=== PATIENT | male | born 1950 | race Caucasian/White ===

== ENCOUNTER 2017-03-02 11:32 | Inpatient (IN) ==
--- NOTE | 2017-03-02 12:08 | Emergency Department Note ---
Disposition Clinical Impression: Adenocarcinoma of lung, stage 3, Tachycardia, Epigastric abdominal pain, Leukopenia, COPD (chronic obstructive pulmonary disease), Dysphagia, Malnutrition, Leukopenia, Pneumonia, Dyspnea, Prostatic hypertrophy, Thrombocytopenia Disposition: Admitted As Inpatient Referrals: Bushra Carrillo MD [Primary Care Provider] - Forms: Work/School Release, ED Satisfaction Letter General Adult HPI - General Chief complaint: ED General Medical Stated complaint: Pain/Loss of Appetite Cancer Patient Source: patient, family Limitations: no limitations - History of Present Illness HPI Narrative: 66-year-old male comes into the emergency department there is concern for dehydration. Patient has a history of lung cancer has been undergoing treatment. He describes pain when swallowing and discomfort in his mid epigastrium which she describes as a burning pain. He has had no abdominal pain. He patient has a history of coronary artery disease but denies any upper chest pain there is no history of radiating pain to the neck or arms. There is no history of bloody or black material in the stool. The patient states he supposed to be anticoagulated but has been unable to take his medication. The patient has had trouble swallowing and has not been eating or drinking as much. He was in contact with the cancer center staff who recommended the patient be admitted to the hospital. The patient was sent to the ED for evaluation. There is no history of trauma or acute back pain. No history of cough or coughing up blood no leg swelling or pain. He patient has been somewhat short of breath. He does not usually require oxygen but has oxygen at home available. There is no history of previous DVT or PE. No syncope. No trouble moving the arms or legs independently no unilateral arm or leg weakness or numbness. There is no history of confusion or dysarthria. The patient's concerns are for burning in the midepigastric area, pain associated with swallowing, and dehydration. There are reports the patient has had a high heart rate. Pain Scale: 6 - Related Data Home Medications Medication Instructions Recorded Confirmed Atorvastatin [Lipitor] 80 mg PO HS 11/23/16 03/02/17 Fluticasone Propionate Nasal 2 spray NS DAILY 11/23/16 03/02/17 [Flonase] Albuterol Sulfate [Proair Hfa] 2 puff IH Q4H PRN 11/29/16 03/02/17 Budesonide/Formoterol 160/4.5 2 puff IH BIDR 11/29/16 03/02/17 [Symbicort 160/4.5] Ipratropium [place] 2 spray NS HS 11/29/16 03/02/17 Multivitamin [One Daily Essential] 1 tab PO DAILY 11/29/16 03/02/17 Previous Rx's Medication Instructions Recorded Aspirin Enteric Coated [Aspirin EC] 81 mg PO DAILY #30 tablet. 10/09/15 Carvedilol [Coreg] 3.125 mg PO BIDWM #60 tablet 10/09/15 Clopidogrel [Plavix] 75 mg PO DAILY #30 tablet 10/09/15 Lisinopril [Zestril] 5 mg PO DAILY #30 tablet 10/09/15 Dexamethasone [Decadron] 4 mg PO BID #10 tab 12/20/16 Ondansetron ODT [Zofran ODT] 4 mg SL Q8HR PRN #90 tab.rapdis 12/20/16 Prochlorperazine Maleate 10 mg PO Q8HR PRN #90 tablet 12/20/16 [Compazine] Omeprazole [PriLOSEC] 40 mg PO DAILY #30 cap 01/27/17 GuaiFENesin/Codeine [Robitussin 10 ml PO Q8HR PRN #600 liquid 02/03/17 w/Codeine] Mag Hydrox/Al Hydrox/Simeth 5 - 10 ml PO Q4H PRN #520 oral.susp 02/24/17 [Maalox] Magic Mouthwash [Magic Mouthwash 10 ml PO QID PRN #240 ml 02/28/17 BLM] Nystatin [Nystatin Suspension] 5 - 10 ml PO Q4H #1000 ml 02/28/17 OxyCODONE/APAP 5/325 [Percocet 1 each PO Q4HR PRN #80 tablet 02/28/17 5/325 MG] Sucralfate [Carafate] 1 gm PO QIDAC #120 tablet 02/28/17 Allergies Allergy/AdvReac Type Severity Reaction Status Date / Time No Known Allergies Allergy Verified 03/02/17 11:59 All systems ED: reviewed and negative except as stated. Past Medical History - Past Medical History Medical history: Reports: cancer, COPD, hyperlipidemia, myocardial infarction Surgical history: Reports: other Psychiatric history: Reports: no psych history - Social History Smoking Status: Current every day smoker Smokeless Tobacco Status: No Alcohol use: Reports: none Drug use: Reports: none Physical Exam - General Limitations: no limitations General appearance: alert, in no apparent distress - Head Head exam: atraumatic, normocephalic, normal inspection - Eye Eye exam: Present: normal appearance, PERRL, EOMI. Absent: scleral icterus, conjunctival injection, miosis, mydriasis - ENT ENT exam: normal exam, normal oropharynx, mucous membranes moist - Neck Neck exam: Present: normal inspection, full ROM, trachea midline. Absent: tenderness - Chest Chest inspection: Present: symmetric chest wall rise. Absent: tenderness - Respiratory Respiratory exam: Present: normal lung sounds bilaterally. Absent: respiratory distress, wheezes, accessory muscle use, prolonged expiratory phase - Cardiovascular Cardiovascular exam: Present: normal rhythm, tachycardia - Abdominal Exam Abdominal exam: Present: soft, Non-Tender, normal bowel sounds. Absent: tenderness, distention, guarding, rebound, rigidity, pulsatile mass - Extremities Exam Extremities exam: Present: normal inspection, full ROM, normal capillary refill. Absent: tenderness, pedal edema, joint swelling, calf tenderness - Expanded Lower Extremity Exam Lower leg exam: Absent: Homans' sign Neurovascular/Tendon exam: Present: normal capillary refill. Absent: motor deficit, sensory deficit, tendon deficit, extremity cold to touch, pallor - Back Exam Back exam: Present: normal inspection, full ROM. Absent: tenderness, CVA tenderness (R), CVA tenderness (L), vertebral tenderness - Neurological Exam Neurological exam: Present: alert, oriented X3, CN II-XII intact. Absent: motor sensory deficit - Psychiatric Psychiatric exam: Present: normal affect, normal mood - Skin Skin exam: Present: warm, dry, intact, normal color. Absent: rash, cyanosis, diaphoresis, erythema, pallor, mottled Course Vital Signs Temperature 99.3 F 03/02/17 11:34 Pulse Rate 137 03/02/17 11:34 Respiratory Rate 18 03/02/17 11:34 Blood Pressure 126/77 03/02/17 11:34 O2 Sat by Pulse Oximetry 94 03/02/17 11:34 Temperature 99.3 F 03/02/17 11:34 Pulse Rate 115 03/02/17 14:14 Respiratory Rate 12 03/02/17 14:14 Blood Pressure 129/76 03/02/17 14:14 O2 Sat by Pulse Oximetry 92 03/02/17 14:14 Oxygen Delivery Oxygen Delivery Nasal Cannula Medical Decision Making - MDM Narrative Medical decision making narrative: Patient reportedly has a history of esophagitis per his oncologist, they feel he is malnourished and may require PEG tube, they have suggested admission. The patient's CT scans are suggestive of pneumonitis, he does have an elevated CRP and complaints of dyspnea, he does not usually wear oxygen and is now Significantly short of breath. The patient has remained tachycardic in the ED. IV fluids were given. Levaquin given blood cultures were sent. Based on the patient's comorbidities including malignancy, persistent tachycardia elevated CRP, CT studies suggestive of pulmonary infiltrate, and dyspnea with comorbid COPD, I thought it would be appropriate to admit the patient to the hospital. The patient is currently stable. There is no evidence of pulmonary venous thrombus. I discussed the case with the hospitalist who has accepted the patient to their care. - Lab Data Lab results reviewed: Yes I reviewed the patient's lab results. Result diagrams: 03/02/17 12:13 03/02/17 12:13 Lab Results 03/02/17 03/02/17 03/02/17 Range/Units 12:13 12:13 12:13 WBC 2.6 L (4.3-11.1) K/mcL RBC 4.84 (4.19-5.50) M/mcL Hgb 13.1 (12.9-16.9) g/dL Hct 39.7 (37.5-50.1) % MCV 82.0 L (83.0-100.0) fL MCH 27.1 L (28.0-33.3) pg MCHC 33.0 (31.6-35.5) g/dL RDW 15.2 H (11.5-14.5) % Plt Count 107 L (140-400) K/mcL MPV 9.6 (9.4-12.4) fL Immature Gran % 0.4 (0-4) % Seg Neutrophils % 75.1 % Lymphocytes % 8.0 % Monocytes % 16.1 % Eosinophils % 0.0 % Basophils % 0.4 % Neutrophils # 2.0 (1.6-8.9) K/mcL Lymphocytes # 0.2 L (0.6-4.6) K/mcL Monocytes # 0.4 (0.0-1.3) K/mcL Eosinophils # 0.0 (0.0-0.6) K/mcL Basophils # 0.0 (0.0-0.2) K/mcL PT (9.4-12.1) Seconds INR APTT (26.0-36.0) Seconds Sodium 140 (136-145) mEq/L Potassium 3.7 (3.5-4.5) mEq/L Chloride 103 (98-109) mEq/L Carbon Dioxide 23 (19-29) mEq/L BUN 18 (8-26) mg/dL Creatinine 0.87 (0.72-1.25) mg/dL Est GFR ( Amer) > 60 (> 60) Est GFR (Non-Af Amer) > 60 (> 60) BUN/Creatinine Ratio 21 (6-26) Glucose 97 (70-99) mg/dL Calculated Osmolality 292 (280-300) Lactic Acid (0.5-2.2) mmol/L Calcium 9.2 (8.6-10.8) mg/dL Magnesium 1.9 (1.6-2.6) mg/dL Total Bilirubin 0.5 (0.2-1.2) mg/dL Direct Bilirubin 0.2 (0.0-0.5) mg/dL Indirect Bilirubin 0.3 (0.0-1.2) mg/dL AST 18 (5-34) Units/L ALT 34 (0-55) Units/L Alkaline Phosphatase 78 (38-126) Units/L Troponin I 0.01 (0-0.03) ng/mL C-Reactive Protein 85 H (Less than 5) mg/L Serum Total Protein 7.2 (6.0-8.3) g/dL Albumin 3.3 L (3.5-5.0) g/dL Globulin 3.9 H (2.4-3.5) g/dL Albumin/Globulin Ratio 0.8 L (1.1-2.2) Lipase 5 L (8-78) Units/L 03/02/17 03/02/17 Range/Units 12:13 12:15 WBC (4.3-11.1) K/mcL RBC (4.19-5.50) M/mcL Hgb (12.9-16.9) g/dL Hct (37.5-50.1) % MCV (83.0-100.0) fL MCH (28.0-33.3) pg MCHC (31.6-35.5) g/dL RDW (11.5-14.5) % Plt Count (140-400) K/mcL MPV (9.4-12.4) fL Immature Gran % (0-4) % Seg Neutrophils % % Lymphocytes % % Monocytes % % Eosinophils % % Basophils % % Neutrophils # (1.6-8.9) K/mcL Lymphocytes # (0.6-4.6) K/mcL Monocytes # (0.0-1.3) K/mcL Eosinophils # (0.0-0.6) K/mcL Basophils # (0.0-0.2) K/mcL PT 13.0 H (9.4-12.1) Seconds INR 1.2 APTT 25.1 L (26.0-36.0) Seconds Sodium (136-145) mEq/L Potassium (3.5-4.5) mEq/L Chloride (98-109) mEq/L Carbon Dioxide (19-29) mEq/L BUN (8-26) mg/dL Creatinine (0.72-1.25) mg/dL Est GFR ( Amer) (> 60) Est GFR (Non-Af Amer) (> 60) BUN/Creatinine Ratio (6-26) Glucose (70-99) mg/dL Calculated Osmolality (280-300) Lactic Acid 1.4 (0.5-2.2) mmol/L Calcium (8.6-10.8) mg/dL Magnesium (1.6-2.6) mg/dL Total Bilirubin (0.2-1.2) mg/dL Direct Bilirubin (0.0-0.5) mg/dL Indirect Bilirubin (0.0-1.2) mg/dL AST (5-34) Units/L ALT (0-55) Units/L Alkaline Phosphatase (38-126) Units/L Troponin I (0-0.03) ng/mL C-Reactive Protein (Less than 5) mg/L Serum Total Protein (6.0-8.3) g/dL Albumin (3.5-5.0) g/dL Globulin (2.4-3.5) g/dL Albumin/Globulin Ratio (1.1-2.2) Lipase (8-78) Units/L - Radiology Data Radiology results reviewed: Yes I reviewed the patient's radiology results.
[2017-03-02] MEDS ORDERED: 0.9 % Sodium Chloride 1,000 ML IVC ONE ×3 (12:10→15:10)
[2017-03-02] MEDS ORDERED: Famotidine 20 MG/2 ML VIAL IVP ONE ×2 (12:20→14:57)
[2017-03-02] MEDS ORDERED: *HR* HYDROmorphone (PF) 1 MG/ML SYRINGE IVP ONE (12:21)
[2017-03-02] MEDS ORDERED: Ondansetron 4 MG/2 ML VIAL IVP ONE (12:21)
[2017-03-02 12:25] LABS: Hematocrit 39.7 % (37.5-50.1); Hemoglobin 13.1 g/dL (12.9-16.9); Immature Granulocytes % 0.4 % (0-4); Mean Corpuscular Hemoglobin 27.1 pg (28.0-33.3); Mean Platelet Volume 9.6 fL (9.4-12.4); Monocytes % 16.1 %; Platelet Count 107 K/mcL (140-400); Red Blood Count 4.84 M/mcL (4.19-5.50); Red Cell Distribution Width 15.2 % (11.5-14.5); Segmented Neutrophils % 75.1 %
[2017-03-02 12:26] LABS: Basophils % 0.4 %; Lymphocytes # 0.2 K/mcL (0.6-4.6); Monocytes # 0.4 K/mcL (0.0-1.3)
[2017-03-02 12:41] LABS: Alanine Aminotransferase 34 Units/L (0-55); Albumin 3.3 g/dL (3.5-5.0); Albumin/Globulin Ratio 0.8 (1.1-2.2); Alkaline Phosphatase 78 Units/L (38-126); Aspartate Amino Transferase 18 Units/L (5-34); BUN/Creatinine Ratio 21 (6-26); Bilirubin,Direct 0.2 mg/dL (0.0-0.5); Bilirubin,Indirect 0.3 mg/dL (0.0-1.2); Bilirubin,Total 0.5 mg/dL (0.2-1.2); Blood Urea Nitrogen 18 mg/dL (8-26); Calcium 9.2 mg/dL (8.6-10.8); Carbon Dioxide 23 mEq/L (19-29); Chloride 103 mEq/L (98-109); Globulin 3.9 g/dL (2.4-3.5); Glucose 97 mg/dL (70-99); Magnesium 1.9 mg/dL (1.6-2.6); Osmolality,Calculated 292 (280-300); Potassium 3.7 mEq/L (3.5-4.5); Sodium 140 mEq/L (136-145); Total Protein 7.2 g/dL (6.0-8.3); eGFR For African Americans > 60 (> 60); eGFR For Non-African Americans > 60 (> 60)
[2017-03-02 13:02] LABS: C-Reactive Protein 85 mg/L (Less than 5)
[2017-03-02 13:11] LABS: INR 1.2
[2017-03-02 13:13] LABS: Activated Partial Thrombo Time 25.1 Seconds (26.0-36.0)
[2017-03-02 13:15] LABS: Lipase 5 Units/L (8-78)
[2017-03-02] MEDS ORDERED: Levofloxacin 750 MG/150 ML 750 MG/150 ML BAG IVPB ONE (14:29)
[2017-03-02] MEDS ORDERED: methylPREDNISolone 125 MG/2 ML VIAL IVP ONE (14:56)
[2017-03-02 15:46] LABS: Bilirubin,Urine Small (Negative); Blood,Urine Trace (Negative); Clarity,Urine Clear (Clear); Color,Urine Yellow (Yellow); Glucose,Urine (UA) Normal (Normal); Ketones,Urine 15 mg/dL (Negative); Leukocyte Esterase,Urine Negative (Negative); Nitrite,Urine Negative (Negative); Protein,Urine Negative (Neg-Trace); Specific Gravity,Urine > 1.030 (1.010-1.025); Urobilinogen,Urine Normal (Normal)
[2017-03-02] MEDS ORDERED: Acetaminophen 325 MG TABLET PO PRN (15:53)
[2017-03-02] MEDS ORDERED: Naloxone 0.4 MG/ML INJ IVP PRN (15:53)
[2017-03-02] MEDS ORDERED: *HR* OxyCODONE Immed Rel 5 MG TABLET PO PRN (15:53)
[2017-03-02 16:00] LABS: Hyaline Casts,Urine Few per lpf (None-Few); Mucus,Urine Moderate (Few)
[2017-03-02] MEDS ORDERED: Fluconazole 400 MG/200 ML 400 MG/200 ML BAG IVPB SCH (16:00)
[2017-03-02 16:01] LABS: Bacteria,Urine Few per hpf (None-Few); RBC,Urine 0-3 per hpf (0-3); WBC,Urine 0-3 per hpf (0-3)
--- NOTE | 2017-03-02 16:08 | Internal Med History&Physical ---
Date of Encounter: 03/02/17 Time of Encounter: 15:30 Assessment and Plan (1) Sepsis Current visit: Yes Status: Suspected Patient presenting with symptoms of sepsis possibly due to underlying pneumonia. Will follow blood cultures. Monitor vital signs closely. IV hydration. IV antibiotics. High risk for complications. Qualifiers: Sepsis type: Pneumococcus Qualified Code(s): A40.3 - Sepsis due to Streptococcus pneumoniae (2) Odynophagia Current visit: Yes Status: Acute Likely due to oropharyngeal candidiasis. May also have esophageal candidiasis. Will treat with oral clotrimazole and also intravenous fluconazole. (3) Candidiasis of mouth and esophagus Current visit: Yes Status: Acute Treat with intravenous fluconazole and oral clotrimazole swish and swallow. (4) Pneumonia Current visit: Yes Status: Suspected CT scan findings suggestive of pneumonia in the right lower lobe. We will treat with IV antibiotics. Follow blood cultures. Qualifiers: Pneumonia type: due to Pneumococcus Laterality: right Lung location: lower lobe of lung Qualified Code(s): J13 - Pneumonia due to Streptococcus pneumoniae (5) Adenocarcinoma of lung, stage 3 Current visit: Yes Status: Chronic Follow-up with oncology as outpatient for further management. Pain control. O2 supplementation as needed. Qualifiers: Laterality: right Qualified Code(s): C34.91 - Malignant neoplasm of unspecified part of right bronchus or lung (6) COPD (chronic obstructive pulmonary disease) Current visit: Yes Status: Chronic Not in acute exacerbation. Continue bronchodilator nebs as needed. Qualifiers: COPD type: unspecified COPD Qualified Code(s): J44.9 - Chronic obstructive pulmonary disease, unspecified Internal Medicine - H&P: HPI Chief complaint: Generalized weakness, odynophagia Admitted From: Emergency Dept Plans for Post Hospital Care: Home History of present illness: Mr. Carbone is a 66 year old male patient with stage III adenocarcinoma of the lung, COPD, coronary artery disease resented to the ER with complaints of anorexia and odynophagia along with generalized weakness. Patient has been receiving chemotherapy and radiation therapy since November and has finally completed a course on Monday of last week. Since then he has been feeling sick with worsening pain in his stomach especially with eating. He has been taking oxycodone that this makes him feel dizzy and does not help with his pain. He denies any fever chills or night sweats. He has chronic cough that has been going on since he began treatment for his cancer. He has also has episodes of mild hemoptysis. No hematemesis. No melena. He has also been dealing with oral thrush. He was started on treatment for this but has not had any improvement. Past Med Surg Social Fam HX - Past Medical History Attestation: Yes The following information was validated with the patient. Source: patient, old records reviewed, obtained from family Medical history: cancer, COPD, hyperlipidemia, myocardial infarction Psychiatric history: no psych history - Past Surgical History Surgical History: other - Social History Smoking Status: Current every day smoker Smokeless Tobacco Status: No Alcohol use: none Drug use: none - Family History Mother Hx Family Cardiac Disorders: Yes (CHF) Internal Medicine - H&P: Meds Aspirin Enteric Coated [Aspirin EC] 81 mg PO DAILY #30 tablet. 10/09/15 [Rx] Carvedilol [Coreg] 3.125 mg PO BIDWM #60 tablet 10/09/15 [Rx] Clopidogrel [Plavix] 75 mg PO DAILY #30 tablet 10/09/15 [Rx] Lisinopril [Zestril] 5 mg PO DAILY #30 tablet 10/09/15 [Rx] Atorvastatin [Lipitor] 80 mg PO HS 11/23/16 [History] Fluticasone Propionate Nasal [Flonase] 2 spray NS DAILY 11/23/16 [History] Albuterol Sulfate [Proair Hfa] 2 puff IH Q4H PRN 11/29/16 [History] Budesonide/Formoterol 160/4.5 [Symbicort 160/4.5] 2 puff IH BIDR 11/29/16 [ History] Ipratropium [place] 2 spray NS HS 11/29/16 [History] Multivitamin [One Daily Essential] 1 tab PO DAILY 11/29/16 [History] Dexamethasone [Decadron] 4 mg PO BID #10 tab 12/20/16 [Rx] Ondansetron ODT [Zofran ODT] 4 mg SL Q8HR PRN #90 tab.rapdis 12/20/16 [Rx] Prochlorperazine Maleate [Compazine] 10 mg PO Q8HR PRN #90 tablet 12/20/16 [Rx] Omeprazole [PriLOSEC] 40 mg PO DAILY #30 cap 01/27/17 [Rx] GuaiFENesin/Codeine [Robitussin w/Codeine] 10 ml PO Q8HR PRN #600 liquid [Rx] Mag Hydrox/Al Hydrox/Simeth [Maalox] 5 - 10 ml PO Q4H PRN #520 oral.susp [Rx] Magic Mouthwash [Magic Mouthwash BLM] 10 ml PO QID PRN #240 ml 02/28/17 [Rx] Nystatin [Nystatin Suspension] 5 - 10 ml PO Q4H #1000 ml 02/28/17 [Rx] OxyCODONE/APAP 5/325 [Percocet 5/325 MG] 1 each PO Q4HR PRN #80 tablet 02/28/17 [Rx] Sucralfate [Carafate] 1 gm PO QIDAC #120 tablet 02/28/17 [Rx] Allergies No Known Allergies Allergy (Verified 03/02/17 11:59) All Systems PM: A 10-system review of systems was performed and is negative for pertinent findings except as documented above in the HPI. - Constitutional Constitutional: malaise, weakness, no chills, no fever(s), no night sweats - EENT Eyes: no change in vision, no discharge, no pain, no photophobia Ears: no ear discharge, no ear pain, no tinnitus Nose, mouth and throat: no dysphagia, no nasal discharge, no neck pain, no sore throat - Cardiovascular Cardiovascular ROS IM: no chest pain, no diaphoresis, no dyspnea, no lightheadedness, no palpitations, no syncope - Respiratory Respiratory: no cough, no dyspnea, no wheezing, no excessive phlegm production - Gastrointestinal Gastrointestinal: dysphagia, odynophagia, no abdominal pain, no diarrhea, no hematemesis, no hematochezia, no melena, no nausea, no vomiting - Musculoskeletal Musculoskeletal ROS IM: no numbness, no tingling - Integumentary Integumentary IM: no rash, no unusual bruising - Neurological Neurological ROS: no confusion, no convulsions, no focal weakness, no numbness, no tingling, no tremor(s) - Hematologic/Lymphatic Hematologic/Lymphatic: no easy bruising - Constitutional Vitals: Temp Pulse Resp BP Pulse Ox 99.3 F 106 12 138/97 97 03/02/17 11:34 03/02/17 15:29 03/02/17 15:29 03/02/17 15:29 03/02/17 15:29 General appearance: Present: cooperative, mild distress, A&O X 3, answers questions appropriately - Eye Eye exam: Present: EOMI, PERRL - ENT Additional comments: Oral candidiasis noted visibly on the tongue - Neck Neck exam general surgery: Present: supple, trachea midline. Absent: lymphadenopathy - Respiratory Respiratory exam: Present: CTAB. Absent: accessory muscle use, rales, rhonchi, wheezes - Cardiovascular Cardiovascular exam: Present: RRR, +S1, +S2. Absent: diastolic murmur, gallop, rubs, systolic murmur - GI/Abdominal GI/Abdominal exam: Present: normal bowel sounds, soft, no peritoneal signs. Absent: distended, tenderness - Extremities Exam Extremities exam: Present: warm, radial pulses palpable and symetrical. Absent : calf tenderness, cyanotic, pedal edema - Neurological Exam Neurological exam: Present: alert, oriented X3, no focal deficits. Absent: facial droop, speech deficit - Skin Skin exam: Present: dry, intact Internal Med - H&P Results - Labs CBC & Chem 7: 03/02/17 12:13 03/02/17 12:13 - Impressions Impressions Chest X-Ray 03/02/17 12:08 IMPRESSION: No acute cardiopulmonary process. D/ / 03/02/2017 13:43:21 Justin Light MD / [facility] Interpreting Provider: Justin Light MD Abdomen/Pelvis CT 03/02/17 13:23 IMPRESSION: 1. No definite acute process in the abdomen or pelvis. 2. Scattered fluid in distal small bowel, which is nonspecific but can be seen with gastroenteritis. 3. Moderately enlarged prostate. 4. Aneurysmal dilation of the infrarenal aorta to 3.0 cm. Follow-up per guidelines below. 5. Patchy opacities posteriorly in the right lung base, suspicious for an infectious process. Please refer to separate report from CTA of the chest. RECOMMENDATIONS: Managing Abdominal Aortic Aneurysms 2.6-2.9 cm: 5 year follow up. 3.0-3.4 cm: 3 year follow up 3.5-3.9 cm: 1 year follow up. 4.0-4.4 cm: 1 year follow up. Recommend vascular consultation. 4.5-5.4 cm: 6 month follow up. Recommend vascular consultation. Greater than or equal to 5.5 cm: Referral to vascular surgeon. Reference: Stewart et al. The care of patients with an abdominal aortic aneurysm: The Society of Vascular Surgery practice guidelines. Journal of Vascular Surgery. Vol 50, Number 85. Zoë et al. Managing Incidental Findings on Abdominal and Pelvic CT and MRI, Part 2: White Paper of the ACR Incidental Findings Committee II on Vascular Findings. J Am Chelle Radiol 2013;10:789-794 D/ / 03/02/2017 14:36:33 Guillermo Roger MD / jaden Interpreting Provider: Guillermo Roger MD Chest CTA 03/02/17 13:23 IMPRESSION: No evidence for pulmonary emboli. The patient's right hilar mass appears slightly smaller than on the prior exam. The right apical mass is unchanged. The mediastinal adenopathy is unchanged. There is some diffuse septal thickening and peribronchial thickening seen within the right lower lobe new from prior PET scan may represent some atelectatic changes or early pneumonia, however, cannot exclude the possibly of lymphangitic spread of tumor. D/ / 03/02/2017 14:37:23 Felipe Bermudez MD / Vaishali Saunders Interpreting Provider: Felipe Bermudez MD - Attending Attestation This document has been at least partially created by [employer] recognition technology by Dr. Poon. Errors in grammar, wording or other phrases may exist. If errors are found after the documentation is signed, they will be addressed individually in the addendum section of this document when appropriate.
[2017-03-02] MEDS: Sucralfate 1 GM TABLET PO SCH ×2 (17:30→21:54)
[2017-03-02] MEDS: Pantoprazole 40 MG VIAL IVP SCH (17:32)
[2017-03-02] MEDS: 0.9 % Sodium Chloride 1,000 ML IVC SCH (17:34)
[2017-03-02] MEDS: *HR* Morphine 2 MG/ML SYRINGE IVP PRN ×2 (17:49→21:55)
[2017-03-02] MEDS: Budesonide/Formoterol 160/4.5 MDI IH SCH (20:16)
[2017-03-03 04:25] LABS: Basophils % 0.5 %
[2017-03-03 04:27] LABS: Hemoglobin 10.4 g/dL (12.9-16.9); Immature Granulocytes % 0.5 % (0-4); Lymphocytes # 0.2 K/mcL (0.6-4.6); Lymphocytes % 9.5 %; Mean Corpuscular HGB Conc 32.5 g/dL (31.6-35.5); Mean Corpuscular Hemoglobin 27.3 pg (28.0-33.3); Mean Platelet Volume 10.4 fL (9.4-12.4); Monocytes # 0.2 K/mcL (0.0-1.3); Monocytes % 8.5 %; Neutrophils # 1.5 K/mcL (1.6-8.9); Red Blood Count 3.81 M/mcL (4.19-5.50); Red Cell Distribution Width 15.1 % (11.5-14.5)
[2017-03-03 04:46] LABS: BUN/Creatinine Ratio 20 (6-26); Blood Urea Nitrogen 15 mg/dL (8-26); Calcium 8.3 mg/dL (8.6-10.8); Carbon Dioxide 22 mEq/L (19-29); Chloride 108 mEq/L (98-109); Glucose 120 mg/dL (70-99); Osmolality,Calculated 292 (280-300); Potassium 4.6 mEq/L (3.5-4.5); Sodium 140 mEq/L (136-145); eGFR For African Americans > 60 (> 60); eGFR For Non-African Americans > 60 (> 60)
[2017-03-03 05:17] LABS: Platelet Count 88 K/mcL (140-400)
[2017-03-03 05:19] LABS: Platelet Estimate Normal (Normal)
[2017-03-03] MEDS: 0.9 % Sodium Chloride 1,000 ML IVC SCH ×2 (05:44→17:57)
[2017-03-03] MEDS ORDERED: *HR* Heparin 5,000 UNIT/ML VIAL SQ SCH (06:00)
[2017-03-03] MEDS: Sucralfate 1 GM TABLET PO SCH ×2 (07:27→10:55)
[2017-03-03] MEDS: Budesonide/Formoterol 160/4.5 MDI IH SCH ×2 (08:13→23:04)
[2017-03-03] MEDS: Pantoprazole 40 MG VIAL IVP SCH (08:56)
[2017-03-03] MEDS: Levofloxacin 750 MG/150 ML 750 MG/150 ML BAG IVPB SCH (08:57)
[2017-03-03] MEDS: Fluticasone Propionate Nasal 50 MCG/SPRAY BOTTLE NS SCH (09:00)
[2017-03-03] MEDS ORDERED: Fluconazole 100 MG TABLET PO SCH (09:00)
[2017-03-03] MEDS: Aspirin Enteric Coated 81 MG Tablet PO SCH (09:02)
[2017-03-03] MEDS ORDERED: Stomatitis Mixture 5 ML UDC PO PRN (10:14)
[2017-03-03] MEDS ORDERED: Fluconazole 200 MG/100 ML 200 MG/100 ML BAG IVPB SCH (10:30)
--- NOTE | 2017-03-03 11:39 | Anesthesia Evaluation PreOp ---
Date of Encounter: 03/03/17 Time of Encounter: 11:33 - Past History Planned Operation: EGD for severe dysphagia Cardiac History: [place] (2015 angioplasty, METS >4 without comp (mild SOB)), HTN, Hyperlipidemia Pulmonary History: Other (LUNG CA, with recent chemo and radiation) INTELLECTUAL PROPERTY COUNSEL History: Denies Any Significant HX Other Medical History: Denies Any Significant HX Anesthesia History: No Prior Anesthetic Complications, Past Anesthesia Alcohol Use: none Drug use: none Medications and Allergies Aspirin Enteric Coated [Aspirin EC] 81 mg PO DAILY #30 tablet.dr 10/09/15 [Rx] Carvedilol [Coreg] 3.125 mg PO BIDWM #60 tablet 10/09/15 [Rx] Clopidogrel [Plavix] 75 mg PO DAILY #30 tablet 10/09/15 [Rx] Lisinopril [Zestril] 5 mg PO DAILY #30 tablet 10/09/15 [Rx] Atorvastatin [Lipitor] 80 mg PO HS 11/23/16 [History] Fluticasone Propionate Nasal [Flonase] 2 spray NS DAILY 11/23/16 [History] Albuterol Sulfate [Proair Hfa] 2 puff IH Q4H PRN 11/29/16 [History] Budesonide/Formoterol 160/4.5 [Symbicort 160/4.5] 2 puff IH BIDR 11/29/16 [ History] Ipratropium [place] 2 spray NS HS 11/29/16 [History] Multivitamin [One Daily Essential] 1 tab PO DAILY 11/29/16 [History] Dexamethasone [Decadron] 4 mg PO BID #10 tab 12/20/16 [Rx] Ondansetron ODT [Zofran ODT] 4 mg SL Q8HR PRN #90 tab.rapdis 12/20/16 [Rx] Prochlorperazine Maleate [Compazine] 10 mg PO Q8HR PRN #90 tablet 12/20/16 [Rx] Omeprazole [PriLOSEC] 40 mg PO DAILY #30 cap 01/27/17 [Rx] GuaiFENesin/Codeine [Robitussin w/Codeine] 10 ml PO Q8HR PRN #600 liquid [Rx] Mag Hydrox/Al Hydrox/Simeth [Maalox] 5 - 10 ml PO Q4H PRN #520 oral.susp [Rx] Magic Mouthwash [Magic Mouthwash BLM] 10 ml PO QID PRN #240 ml 02/28/17 [Rx] Nystatin [Nystatin Suspension] 5 - 10 ml PO Q4H #1000 ml 02/28/17 [Rx] OxyCODONE/APAP 5/325 [Percocet 5/325 MG] 1 each PO Q4HR PRN #80 tablet 02/28/17 [Rx] Sucralfate [Carafate] 1 gm PO QIDAC #120 tablet 02/28/17 [Rx] Allergies No Known Allergies Allergy (Verified 03/02/17 11:59) - Meds/Allergy Pre-op Review Beta Blockers on Current Med List: Yes (0800 this AM) Anesthesia Results - Labs 03/03/17 03:58 03/03/17 03:58 Anesthesia Exam - HEENT Pupil (Motor): Pupils equal Mallampati: III Teeth: Edentulous - INTELLECTUAL PROPERTY COUNSEL LOC: Oriented INTELLECTUAL PROPERTY COUNSEL Motor: Normal RUE, Normal LUE, Normal RLE, Normal LLE, Normal Face INTELLECTUAL PROPERTY COUNSEL Sensory: Normal: RUE, LUE, RLE, LLE, Face - Cardiac Rhythm: Regular Murmur: None - Pulmonary Breath Sounds: bilateral Rhonchi Respiratory Effort: Symmetrical Anesthesia Assess/Plan ASA Score: 3 Modified [place] Scale for Level of Consciousness: Cooperative, oriented, and tranquil Anesthetic Plan: MAC Monitoring Plan: Standard Monitors Recovery Plan: PACU
[2017-03-03] MEDS ORDERED: GI Cocktail 40 ML EACH PO ONE (12:04)
[2017-03-03] MEDS: GuaiFENesin/Codeine Oral Soln 5 ML UDC PO PRN (12:18)
--- NOTE | 2017-03-03 12:31 | Gastroenterology Consult Note ---
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 Plan is for carafate therapy. (2) Dysphagia Status: Acute Assessment and plan: Diagnostic EGD today (patient is on PLAVIX). Severe radiation ulceration of esophagus. Carafate tid. Qualifiers: Dysphagia type: unspecified Qualified Code(s): R13.10 - Dysphagia, unspecified (3) Odynophagia Status: Acute Assessment and plan: Continue previous RX - adding carafate (4) Candidiasis of mouth and esophagus Status: Acute Assessment and plan: Continue present medications. (5) Adenocarcinoma of lung, stage 3 Status: Chronic Assessment and plan: Oncology management. Qualifiers: Laterality: right Qualified Code(s): C34.91 - Malignant neoplasm of unspecified part of right bronchus or lung - Time Spent With Patient Total time spent is greater than 50% in coordination of care (as documented) at patient's floor/unit and/or counseling patient: less than 15 minutes GI History of Present Illness - Data of Consult Patient: new to practice Consult date: 03/03/17 Requesting Physician: Hola Suarez - Consult Narrative Reason for consult: dysphagia, painful swallowing History of present illness: Mr. Carbone is a 66 year old male with a significant PMH for stage III adenocarcinoma of the lung, COPD, coronary artery disease, who presented to the ER with complaints of anorexia and odynophagia along with generalized weakness. Patient has been receiving chemotherapy and radiation therapy since November and has finally completed a course on Monday of last week. Since then he has been feeling sick with worsening pain in his stomach especially with eating. He has been taking oxycodone that this makes him feel dizzy and does not help with his pain. He denies any fever chills or night sweats. He has chronic cough that has been going on since he began treatment for his cancer. He has also has episodes of mild hemoptysis. No hematemesis. No melena. He has also been dealing with oral thrush. He was started on treatment for this but has not had any improvement. Colonoscopy: None noted EGD: 02/2017 - Gul - radiation ulceration/esophagus Past Med Surg Social Fam HX - Past Medical History Medical history: cancer, COPD, hyperlipidemia, myocardial infarction Psychiatric history: no psych history - Past Surgical History Surgical History: other - Social History Smoking Status: Current every day smoker Smokeless Tobacco Status: No Alcohol use: none Drug use: none - Family History Mother Hx Family Cardiac Disorders: Yes (CHF) - Gastrointestinal NSAID use: None Anticoagulation Use: PLAVIX Number of BM Per Day: daily Gastrointestinal: Present: abdominal pain - Constitutional Constitutional: as per HPI - EENT Eyes: as per HPI Ears: Present: as per HPI Nose, mouth and throat: Present: dysphagia, sore throat Additional Comment: painful swallowing - Cardiovascular Cardiovascular ROS: Present: as per HPI - Respiratory Respiratory IM: Present: as per HPI - Neurological ROS Neurological GI: Present: as per HPI - Hematologic/Lymphatic Hematologic/Lymphatic pediatric: Present: as per HPI - Musculoskeletal Musculoskeletal ROS GI: Present: as per HPI - Integumentary Integumentary GI: Present: as per HPI - Psychiatric ROS Psychiatric GI: Present: as per HPI - Endocrine Endocrine IM: Present: as per HPI - Constitutional Vitals: Temp Pulse Resp BP Pulse Ox 97.5 F L 105 18 130/79 97 03/03/17 07:58 03/03/17 07:58 03/03/17 08:15 03/03/17 07:58 03/03/17 09:13 General appearance: Present: cooperative, A&O X 3, no acute distress, answers questions appropriately - Head Head exam: Present: atraumatic, normocephalic - Eye Eye exam: Present: normal appearance, sclera anicteric - ENT ENT exam: Present: mucous membranes moist - Neck Neck exam general surgery: Present: normal inspection, trachea midline - Respiratory Respiratory exam: Present: decreased breath sounds, wheezes - Cardiovascular Cardiovascular exam: Present: RRR, +S1, +S2 - GI/Abdominal GI/Abdominal exam: Present: normal bowel sounds, soft, no peritoneal signs - Rectal Rectal exam: Present: deferred - Extremities Exam Extremities exam: Present: warm - Neurological Exam Neurological exam: Present: no focal deficits - Psychiatric Psychiatric exam: Present: normal affect, normal mood - Skin Skin exam: Present: dry, intact, normal color, warm Results - Labs CBC & Chem 7: 03/03/17 03:58 03/03/17 03:58 Labs: Last Result Calcium 8.3 mg/dL (8.6-10.8) L 03/03/17 03:58 Troponin I 0.01 ng/mL (0-0.03) 03/02/17 12:13 C-Reactive Protein 85 mg/L (Less than 5) H 03/02/17 12:13 Entire Visit Hgb 10.4 g/dL (12.9-16.9) L D 03/03/17 03:58 Hct 32.0 % (37.5-50.1) L 03/03/17 03:58 PT 13.0 Seconds (9.4-12.1) H 03/02/17 12:13 Total Bilirubin 0.5 mg/dL (0.2-1.2) 03/02/17 12:13 AST 18 Units/L (5-34) 03/02/17 12:13 ALT 34 Units/L (0-55) 03/02/17 12:13 Lipase 5 Units/L (8-78) L 03/02/17 12:13 - ABG ABG results: PT/INR, D-dimer PT 13.0 Seconds (9.4-12.1) H 03/02/17 12:13 Consult Discharge Plan - Plan Instructions: Sucralfate (By mouth), Levofloxacin (By mouth), Chronic Obstructive Pulmonary Disease (DC), Chronic Dysphagia (DC), Pneumonia (DC) Referrals: Bushra Carrillo MD [Primary Care Provider] - (Web request on 03/02/17. Please call your PCP on Monday to make a hospital f/u for 5-7 days) Prescriptions: Levofloxacin [Levaquin] 750 mg PO DAILY #5 tablet <Berta Smith - Last Filed: 03/04/17 15:37> Date of Encounter: 03/04/17 Time of Encounter: 11:00 - Time Spent With Patient Total time spent is greater than 50% in coordination of care (as documented) at patient's floor/unit and/or counseling patient: GI History of Present Illness - Data of Consult Requesting Physician: Hola Suarez - Consult Narrative History of present illness: Mr. Carbone is a 66 year old male - Constitutional Vitals: Temp Pulse Resp BP Pulse Ox 97.9 F 80 18 106/55 91 03/04/17 07:29 03/04/17 07:29 03/04/17 07:29 03/04/17 07:29 03/04/17 08:58 Results - Labs CBC & Chem 7: 03/04/17 02:43 03/04/17 02:43 Labs: Last Result Calcium 7.8 mg/dL (8.6-10.8) L 03/04/17 02:43 Troponin I 0.01 ng/mL (0-0.03) 03/02/17 12:13 C-Reactive Protein 85 mg/L (Less than 5) H 03/02/17 12:13 Entire Visit Hgb 9.3 g/dL (12.9-16.9) L 03/04/17 02:43 Hct 29.5 % (37.5-50.1) L 03/04/17 02:43 PT 13.0 Seconds (9.4-12.1) H 03/02/17 12:13 Total Bilirubin 0.5 mg/dL (0.2-1.2) 03/02/17 12:13 AST 18 Units/L (5-34) 03/02/17 12:13 ALT 34 Units/L (0-55) 03/02/17 12:13 Lipase 5 Units/L (8-78) L 03/02/17 12:13 - ABG ABG results: PT/INR, D-dimer PT 13.0 Seconds (9.4-12.1) H 03/02/17 12:13 - Attending Attestation I examined this patient and my medical decision-making was reviewed with the [employer]AYER/PA/Advanced Practice Nurse/Resident Physician. I agree with the documented findings, disposition and treatment plan as described except to the extent set forth below.
--- NOTE | 2017-03-03 14:39 | Internal Med Progress Note ---
Date of Encounter: 03/03/17 Time of Encounter: 14:37 - Assessment and plan (1) Esophageal ulceration Current Visit: Yes Status: Acute Assessment and plan: EGD done today, esophageal ulcer likely due to radiation, continue with carafate , no evidence of candidiasis, will d/c fluconazole. IV PPI. IV fluids in light of dehydration due to poor oral intake as a consequence of odynophagia. D/W patient and his family members. Qualifiers: Esophageal ulcer bleeding: without bleeding Qualified Code(s): K22.10 - Ulcer of esophagus without bleeding (2) Odynophagia Current Visit: Yes Status: Acute (3) Dehydration Current Visit: Yes Status: Acute (4) Adenocarcinoma of lung Current Visit: No Status: Acute Qualifiers: Laterality: unspecified laterality Qualified Code(s): C34.90 - Malignant neoplasm of unspecified part of unspecified bronchus or lung - Subjective Interval history: 1st encounter with the patient. seen and examined during rounds. family at beside. afebrile. - Constitutional Vitals: Temp Pulse Resp BP Pulse Ox 98.2 F 98 18 148/80 95 03/03/17 12:30 03/03/17 12:30 03/03/17 12:30 03/03/17 12:30 03/03/17 12:30 General appearance: Present: cooperative, mild distress, A&O X 3, answers questions appropriately - Head Head exam: Present: atraumatic, normocephalic - Eye Eye exam: Present: PERRL, conjuntiva pink, sclera anicteric Pupils: Present: PERRL - Neck Neck exam general surgery: Present: supple, trachea midline. Absent: lymphadenopathy - Respiratory Respiratory exam: Present: CTAB. Absent: accessory muscle use, rales, rhonchi, wheezes - Cardiovascular Cardiovascular exam: Present: RRR, +S1, +S2. Absent: diastolic murmur, gallop, rubs, systolic murmur - GI/Abdominal GI/Abdominal exam: Present: normal bowel sounds, soft, no peritoneal signs. Absent: distended, tenderness - Extremities Exam Extremities exam: Present: warm, radial pulses palpable and symetrical. Absent : calf tenderness, cyanotic, pedal edema - Neurological Exam Neurological exam: Present: CN II-XII intact, oriented X3, no focal deficits. Absent: pronater drift, facial droop, speech deficit - Skin Skin exam: Present: dry, intact Internal Medicine: Result - Labs CBC & Chem 7: 03/03/17 03:58 03/03/17 03:58 Labs: Short CBC 03/03/17 Range/Units 03:58 WBC 1.9 L (4.3-11.1) K/mcL Hgb 10.4 L D (12.9-16.9) g/dL Hct 32.0 L (37.5-50.1) % Plt Count 88 L (140-400) K/mcL Neutrophils # 1.5 L (1.6-8.9) K/mcL BMP 03/03/17 03:58 Sodium 140 Potassium 4.6 H Chloride 108 Carbon Dioxide 22 BUN 15 Creatinine 0.74 Glucose 120 H Calcium 8.3 L - ABG Interpretation ABG results: PT/INR, D-dimer PT 13.0 Seconds (9.4-12.1) H 03/02/17 12:13 Consult Discharge Plan - Plan Referrals: Bushra Carrillo MD [Primary Care Provider] - (Web requested on 03/02/17)
[2017-03-04 03:20] LABS: Basophils % 0.4 %; Eosinophils % 0.4 %; Hematocrit 29.5 % (37.5-50.1); Mean Corpuscular Volume 83.8 fL (83.0-100.0); Red Blood Count 3.52 M/mcL (4.19-5.50)
[2017-03-04 03:23] LABS: Hemoglobin 9.3 g/dL (12.9-16.9); Immature Granulocytes % 0.4 % (0-4); Lymphocytes # 0.3 K/mcL (0.6-4.6); Lymphocytes % 13.1 %; Mean Corpuscular HGB Conc 31.5 g/dL (31.6-35.5); Mean Corpuscular Hemoglobin 26.4 pg (28.0-33.3); Mean Platelet Volume 10.5 fL (9.4-12.4); Monocytes # 0.4 K/mcL (0.0-1.3); Monocytes % 15.6 %; Neutrophils # 1.7 K/mcL (1.6-8.9); Segmented Neutrophils % 70.1 %
[2017-03-04 03:37] LABS: Blood Urea Nitrogen 13 mg/dL (8-26); Carbon Dioxide 23 mEq/L (19-29); Chloride 109 mEq/L (98-109); Potassium 3.7 mEq/L (3.5-4.5); Sodium 140 mEq/L (136-145)
[2017-03-04 03:38] LABS: BUN/Creatinine Ratio 20 (6-26); Calcium 7.8 mg/dL (8.6-10.8); Glucose 84 mg/dL (70-99); Osmolality,Calculated 289 (280-300); eGFR For African Americans > 60 (> 60); eGFR For Non-African Americans > 60 (> 60)
[2017-03-04 03:56] LABS: Platelet Count 95 K/mcL (140-400)
[2017-03-04 03:58] LABS: Platelet Estimate Decreased (Normal)
[2017-03-04] MEDS: 0.9 % Sodium Chloride 1,000 ML IVC SCH (04:03)
[2017-03-04] MEDS: GuaiFENesin/Codeine Oral Soln 5 ML UDC PO PRN (05:54)
[2017-03-04] MEDS ORDERED: *HR* Enoxaparin 40 MG/0.4 ML SYRINGE SQ SCH (06:00)
[2017-03-04] MEDS: Budesonide/Formoterol 160/4.5 MDI IH SCH (07:28)
[2017-03-04 07:30] VITALS: BP 106/55
[2017-03-04] MEDS: Pantoprazole 40 MG VIAL IVP SCH (07:40)
[2017-03-04] MEDS: Aspirin Enteric Coated 81 MG Tablet PO SCH (07:40)
[2017-03-04] MEDS: Levofloxacin 750 MG/150 ML 750 MG/150 ML BAG IVPB SCH (07:41)
[2017-03-04] MEDS: Fluticasone Propionate Nasal 50 MCG/SPRAY BOTTLE NS SCH (07:45)
--- NOTE | 2017-03-04 09:58 | Discharge Summary ---
Date of Encounter: 03/04/17 Time of Encounter: 09:57 - Discharge Diagnosis (1) Esophageal ulceration Priority: Primary Status: Acute Qualifiers: Esophageal ulcer bleeding: without bleeding Qualified Code(s): K22.10 - Ulcer of esophagus without bleeding (2) Odynophagia Priority: Secondary Status: Acute (3) Dehydration Priority: Secondary Status: Acute (4) Adenocarcinoma of lung Priority: Secondary Status: Acute Qualifiers: Laterality: unspecified laterality Qualified Code(s): C34.90 - Malignant neoplasm of unspecified part of unspecified bronchus or lung - Discharge Medications Home Medications: Aspirin Enteric Coated [Aspirin EC] 81 mg PO DAILY #30 tablet.dr 10/09/15 [Rx] Carvedilol [Coreg] 3.125 mg PO BIDWM #60 tablet 10/09/15 [Rx] Clopidogrel [Plavix] 75 mg PO DAILY #30 tablet 10/09/15 [Rx] Lisinopril [Zestril] 5 mg PO DAILY #30 tablet 10/09/15 [Rx] Atorvastatin [Lipitor] 80 mg PO HS 11/23/16 [History] Fluticasone Propionate Nasal [Flonase] 2 spray NS DAILY 11/23/16 [History] Albuterol Sulfate [Proair Hfa] 2 puff IH Q4H PRN 11/29/16 [History] Budesonide/Formoterol 160/4.5 [Symbicort 160/4.5] 2 puff IH BIDR 11/29/16 [ History] Ipratropium [place] 2 spray NS HS 11/29/16 [History] Multivitamin [One Daily Essential] 1 tab PO DAILY 11/29/16 [History] Dexamethasone [Decadron] 4 mg PO BID #10 tab 12/20/16 [Rx] Ondansetron ODT [Zofran ODT] 4 mg SL Q8HR PRN #90 tab.rapdis 12/20/16 [Rx] Prochlorperazine Maleate [Compazine] 10 mg PO Q8HR PRN #90 tablet 12/20/16 [Rx] Omeprazole [PriLOSEC] 40 mg PO DAILY #30 cap 01/27/17 [Rx] GuaiFENesin/Codeine [ROBITUSSIN w/CODEINE] 10 ml PO Q8HR PRN #600 liquid [Rx] Mag Hydrox/Al Hydrox/Simeth [Maalox] 5 - 10 ml PO Q4H PRN #520 oral.susp [Rx] Magic Mouthwash [Magic Mouthwash BLM] 10 ml PO QID PRN #240 ml 02/28/17 [Rx] Nystatin [Nystatin Suspension] 5 - 10 ml PO Q4H #1000 ml 02/28/17 [Rx] OxyCODONE/APAP 5/325 [Percocet 5/325 MG] 1 each PO Q4HR PRN #80 tablet 02/28/17 [Rx] Sucralfate [Carafate] 1 gm PO QIDAC #120 tablet 02/28/17 [Rx] Allergies/Adverse Reactions: Allergies No Known Allergies Allergy (Verified 03/02/17 11:59) Date of admission: 03/03/17 17:24 Primary care physician: Bushra Carrillo MD Discharging clinician: Hola Suarez Anticipated date of discharge: 03/04/17 - Patient Status Disposition: Home, Self-Care Condition: Fair Functional capacity at discharge: independent ambulation Overall status at discharge: patient is back to baseline - Discharge Instructions Follow Up With: Bushra Carrillo MD [Primary Care Provider] - (Web requested on 03/02/17) - Diet and Activity Activity: increase activity as tolerated Diet: advance to your usual diet Interval History: Mr. Carbone is a 66 year old male patient with stage III adenocarcinoma of the lung, COPD, coronary artery disease resented to the ER with complaints of anorexia and odynophagia along with generalized weakness. Patient has been receiving chemotherapy and radiation therapy since November and has finally completed a course on Monday of last week. Since then he has been feeling sick with worsening pain in his stomach especially with eating. He has been taking oxycodone that this makes him feel dizzy and does not help with his pain. He denies any fever chills or night sweats. He has chronic cough that has been going on since he began treatment for his cancer. He has also has episodes of mild hemoptysis. No hematemesis. No melena. He has also been dealing with oral thrush. He was started on treatment for this but has not had any improvement. Hospital course: Mr. Carbone is a 66 year old male EGD done yesterday, esophageal ulcer likely due to radiation, continue with carafate, no evidence of candidiasis, has tolerated diet, no nausea or vomiting, zunilda; function tests stable. Will discharg the patient home today, will ocntinue with carafate and follow up as outaptient with his pcp. D/W patient. - Time Spent with Patient Total time spent providing and/or coordinating discharge services: - Constitutional Vitals: Temp Pulse Resp BP Pulse Ox 97.9 F 80 18 106/55 91 03/04/17 07:29 03/04/17 07:29 03/04/17 07:29 03/04/17 07:29 03/04/17 08:58 General appearance: Present: cooperative, mild distress, A&O X 3, answers questions appropriately - Head Head exam: Present: atraumatic, normocephalic - Eye Eye exam: Present: PERRL, conjuntiva pink, sclera anicteric Pupils: Present: PERRL - Neck Neck exam general surgery: Present: supple, trachea midline. Absent: lymphadenopathy - Respiratory Respiratory exam: Present: CTAB. Absent: accessory muscle use, rales, rhonchi, wheezes - Cardiovascular Cardiovascular exam: Present: RRR, +S1, +S2. Absent: diastolic murmur, gallop, rubs, systolic murmur - GI/Abdominal GI/Abdominal exam: Present: normal bowel sounds, soft, no peritoneal signs. Absent: distended, tenderness - Extremities Exam Extremities exam: Present: warm, radial pulses palpable and symetrical. Absent : calf tenderness, cyanotic, pedal edema - Neurological Exam Neurological exam: Present: CN II-XII intact, oriented X3, no focal deficits. Absent: pronater drift, facial droop, speech deficit - Skin Skin exam: Present: dry, intact
[2017-03-04] MEDS ORDERED: Lidocaine -MPF 2% 5 ML VIAL INFILT ONE (11:11)
[2017-03-04] MEDS ORDERED: Esmolol 100 MG/10 ML VIAL IVP ONE (11:11)
[2017-03-04] MEDS ORDERED: *HR* Metoprolol 5 MG/5 ML VIAL IVP ONE (11:11)
[2017-03-04] MEDS ORDERED: *HR* Propofol 200 MG/20 ML VIAL IVP ONE (11:11)
--- NOTE | 2017-03-06 17:41 | Electrocardiograph Report ---
[facility] Test Date: 2017-03-02 Pat Name: Yaron Carbone Department: 104 Room: 2A14 Gender: M [employer] Outreach Specialist: [facility] : 1950 Requested By: Lance Murguia Order Number: [id number] Reading MD: Jossue St MD Measurements Intervals [place] Rate: 116 P: 85 WV: 151 QRS: 86 QRSD: 100 T: 61 QT: 318 QTc: 387 Interpretive Statements SINUS TACHYCARDIA ABNORMAL RHYTHM ECG Electronically Signed On 03-06-2017 17:40:[address] MD
== END 2017-03-04 11:12 | disposition home or self-care (01) | DRG 871 ==
LOC: 2ANU 11:32 → EMEROO 11:32 → 2ANU 16:05
PROVIDERS: ADMIT Internal Medicine; ATTEND Internal Medicine

== ENCOUNTER 2017-04-08 23:31 | Inpatient (IN) ==
[2017-04-08] MEDS ORDERED: 0.9 % Sodium Chloride 1,000 ML IVC ONE (23:51)
[2017-04-09 00:01] LABS: Basophils % 0.3 %; Eosinophils # 0.1 K/mcL (0.0-0.6); Eosinophils % 0.6 %; Hematocrit 35.8 % (37.5-50.1); Hemoglobin 11.3 g/dL (12.9-16.9); Immature Granulocytes % 0.6 % (0-4); Lymphocytes # 1.2 K/mcL (0.6-4.6); Lymphocytes % 12.7 %; Mean Corpuscular HGB Conc 31.6 g/dL (31.6-35.5); Mean Corpuscular Hemoglobin 26.8 pg (28.0-33.3); Mean Corpuscular Volume 84.8 fL (83.0-100.0); Mean Platelet Volume 10.5 fL (9.4-12.4); Monocytes # 1.3 K/mcL (0.0-1.3); Monocytes % 13.7 %; Neutrophils # 6.8 K/mcL (1.6-8.9); Platelet Count 201 K/mcL (140-400); Red Blood Count 4.22 M/mcL (4.19-5.50); Segmented Neutrophils % 72.1 %
[2017-04-09 00:16] LABS: BUN/Creatinine Ratio 16 (6-26); Blood Urea Nitrogen 12 mg/dL (8-26); Calcium 9.3 mg/dL (8.6-10.8); Carbon Dioxide 23 mEq/L (19-29); Chloride 103 mEq/L (98-109); Glucose 116 mg/dL (70-99); Osmolality,Calculated 287 (280-300); Potassium 3.5 mEq/L (3.5-4.5); Sodium 138 mEq/L (136-145); eGFR For African Americans > 60 (> 60); eGFR For Non-African Americans > 60 (> 60)
[2017-04-09 00:31] LABS: Bilirubin,Urine Negative (Negative); Blood,Urine Negative (Negative); Clarity,Urine Clear (Clear); Color,Urine Yellow (Yellow); Glucose,Urine (UA) Normal (Normal); Ketones,Urine 40 mg/dL (Negative); Leukocyte Esterase,Urine Negative (Negative); Nitrite,Urine Negative (Negative); PH,Urine 5.5 pH Units (5.0-8.0); Protein,Urine Trace mg/dL (Neg-Trace); Specific Gravity,Urine 1.027 (1.010-1.025); Urobilinogen,Urine Normal (Normal)
[2017-04-09 00:34] LABS: Bacteria,Urine None Seen per hpf (None-Few); Hyaline Casts,Urine None Seen per lpf (None-Few); Squamous Epithelial Cell,Urine None Seen per lpf (None-Few); WBC,Urine 0-3 per hpf (0-3)
--- NOTE | 2017-04-09 00:38 | Emergency Department Note ---
Disposition Clinical Impression: Community acquired pneumonia Disposition: Admitted As Inpatient Condition: Good Time of Disposition: 02:28 General Adult HPI - General Chief complaint: ED Shortness of Breath/Dyspnea Stated complaint: HALLE/CP/Lung CA Time Seen by Provider: 04/08/17 23:44 Source: family Limitations: no limitations - History of Present Illness HPI Narrative: Patient complaining a one-week history of increasing shortness of breath. States that it got significantly worse today. Has been using more of his oxygen than normal at home. Does have a cough that is chronic change in his sputum. Denies any fever but does report chills at home. Has a history of lung cancer. Recently stopped chemotherapy and radiation a month ago. Pain Scale: 0 - Related Data Home Medications Medication Instructions Recorded Confirmed Atorvastatin [Lipitor] 80 mg PO HS 11/23/16 04/07/17 Fluticasone Propionate Nasal 2 spray NS DAILY 11/23/16 04/07/17 [Flonase] Albuterol Sulfate [Proair Hfa] 2 puff IH Q4H PRN 11/29/16 04/07/17 Budesonide/Formoterol 160/4.5 2 puff IH BIDR 11/29/16 04/07/17 [Symbicort 160/4.5] Ipratropium [place] 2 spray NS HS 11/29/16 04/07/17 Multivitamin [One Daily Essential] 1 tab PO DAILY 11/29/16 04/07/17 Previous Rx's Medication Instructions Recorded Aspirin Enteric Coated [Aspirin EC] 81 mg PO DAILY #30 tablet. 10/09/15 Carvedilol [Coreg] 3.125 mg PO BIDWM #60 tablet 10/09/15 Clopidogrel [Plavix] 75 mg PO DAILY #30 tablet 10/09/15 Lisinopril [Zestril] 5 mg PO DAILY #30 tablet 10/09/15 Omeprazole [PriLOSEC] 40 mg PO DAILY #30 cap 01/27/17 GuaiFENesin/Codeine [ROBITUSSIN 10 ml PO Q8HR PRN #600 liquid 02/03/17 w/CODEINE] Mag Hydrox/Al Hydrox/Simeth 5 - 10 ml PO Q4H PRN #520 oral.susp 02/24/17 [Maalox] Magic Mouthwash [Magic Mouthwash 10 ml PO QID PRN #240 ml 02/28/17 BLM] Sucralfate [Carafate] 1 gm PO QIDAC #120 tablet 02/28/17 Allergies Allergy/AdvReac Type Severity Reaction Status Date / Time No Known Allergies Allergy Verified 03/02/17 11:59 Review of Systems: Patient denies any overt fevers but does report chills. States his been going on for about a week. Increasing shortness of breath for the past week. Significantly worse today. Reported chest wall pain associated with the cough. Has a chronic cough. No sputum production. Denies any abdominal pain nausea vomiting or diarrhea. Denies any swelling to his extremities. All systems ED: reviewed and negative except as stated. Past Medical History - Past Medical History Medical history: Reports: cancer, COPD, hyperlipidemia, myocardial infarction Surgical history: Reports: other Psychiatric history: Reports: no psych history - Social History Smoking Status: Current every day smoker Smokeless Tobacco Status: No Alcohol use: Reports: none Drug use: Reports: none Physical Exam - General Limitations: no limitations General appearance: alert, in no apparent distress - Head Head exam: atraumatic, normocephalic, normal inspection - Eye Eye exam: Present: normal appearance, PERRL, EOMI. Absent: scleral icterus - ENT ENT exam: normal exam, normal oropharynx, mucous membranes moist - Neck Neck exam: Present: normal inspection, full ROM, trachea midline. Absent: tenderness, meningismus, lymphadenopathy - Chest Chest inspection: Present: normal inspection, symmetric chest wall rise. Absent : tenderness - Respiratory Respiratory exam: Present: other (Pleural rub and right lower lobe. All other lung al clear.). Absent: respiratory distress - Cardiovascular Cardiovascular exam: Present: normal rhythm, tachycardia, normal heart sounds - Abdominal Exam Abdominal exam: Present: soft, Non-Tender, normal bowel sounds. Absent: tenderness, distention, guarding, rebound, rigidity, organomegaly - Extremities Exam Extremities exam: Present: normal inspection, full ROM, normal capillary refill. Absent: tenderness, pedal edema - Back Exam Back exam: Present: normal inspection, full ROM. Absent: tenderness - Neurological Exam Neurological exam: Present: alert, oriented X3 - Psychiatric Psychiatric exam: Present: normal affect, normal mood - Skin Skin exam: Present: warm, dry, intact, normal color. Absent: rash, cyanosis, diaphoresis Course Course Narrative: Patient presents emergency department with a one-week history of shortness of breath. States it got significantly worse today. He does have a right upper lobe lung cancer that he recently finished up radiation and chemotherapy for 1 month ago. He states he has not had any fevers but he has had some chills while at home. States he does have a cough that is chronic to him. He states that he is using his oxygen more today than he normally does. He states this is because of shortness of breath. His lung sounds are clear diffusely. This appears if he has a pleural rub in his right lower lobe. Heart sounds are normal. There is no signs of edema to his extremities. He does not appear cyanotic and he is not using accessory muscles. We will get a CTA of patient's chest and labs. He denies any overt chest pain but does report a chest wall pain with the cough. Likely admit patient for his shortness of breath. - Reevaluation(s) Reevaluation #1: Patient reassessed. He is resting A in bed. He is still slightly tachycardic at 109. We will order an additional liter of fluids. Patient has a pneumonia that is apparent on CT. We will admit patient for IV antibiotics. He does have a recent history of chemotherapy approximately a month ago that he finished as well as radiation. He is agreeable with this plan. He is not febrile while he is here. Time: 02:15 Vital Signs Temperature 98.7 F 04/08/17 23:32 Pulse Rate 124 04/08/17 23:32 Respiratory Rate 24 04/08/17 23:32 Blood Pressure 132/91 04/08/17 23:32 O2 Sat by Pulse Oximetry 90 04/08/17 23:32 Temperature 98.7 F 04/08/17 23:32 Pulse Rate 125 04/08/17 23:52 Respiratory Rate 18 04/09/17 03:10 Blood Pressure 110/63 04/09/17 03:10 O2 Sat by Pulse Oximetry 94 04/08/17 23:52 Oxygen Delivery Oxygen Delivery Nasal Cannula Medical Decision Making - Medical Records Medical records reviewed: Yes I reviewed the patient's medical records. - Lab Data Lab results reviewed: Yes I reviewed the patient's lab results. Result diagrams: 04/08/17 23:50 04/08/17 23:50 Lab Results 06/04/08/17 04/08/17 Range/Units 23:50 23:50 23:50 WBC 9.4 (4.3-11.1) K/mcL RBC 4.22 (4.19-5.50) M/mcL Hgb 11.3 L (12.9-16.9) g/dL Hct 35.8 L (37.5-50.1) % MCV 84.8 (83.0-100.0) fL MCH 26.8 L (28.0-33.3) pg MCHC 31.6 (31.6-35.5) g/dL RDW 18.0 H (11.5-14.5) % Plt Count 201 (140-400) K/mcL MPV 10.5 (9.4-12.4) fL Immature Gran % 0.6 (0-4) % Seg Neutrophils % 72.1 % Lymphocytes % 12.7 % Monocytes % 13.7 % Eosinophils % 0.6 % Basophils % 0.3 % Neutrophils # 6.8 (1.6-8.9) K/mcL Lymphocytes # 1.2 (0.6-4.6) K/mcL Monocytes # 1.3 (0.0-1.3) K/mcL Eosinophils # 0.1 (0.0-0.6) K/mcL Basophils # 0.0 (0.0-0.2) K/mcL Sodium 138 (136-145) mEq/L Potassium 3.5 (3.5-4.5) mEq/L Chloride 103 (98-109) mEq/L Carbon Dioxide 23 (19-29) mEq/L BUN 12 (8-26) mg/dL Creatinine 0.76 (0.72-1.25) mg/dL Est GFR ( Amer) > 60 (> 60) Est GFR (Non-Af Amer) > 60 (> 60) BUN/Creatinine Ratio 16 (6-26) Glucose 116 H (70-99) mg/dL Calculated Osmolality 287 (280-300) Lactic Acid 1.1 (0.5-2.2) mmol/L Calcium 9.3 (8.6-10.8) mg/dL Troponin I (0-0.03) ng/mL B-Natriuretic Peptide (0-100) pg/mL Urine Color (Yellow) Urine Clarity (Clear) Urine pH (5.0-8.0) pH Units Ur Specific [place] (1.010-1.025) Urine Protein (Neg-Trace) mg/dL Urine Glucose (UA) (Normal) mg/dL Urine Ketones (Negative) mg/dL Urine Blood (Negative) Urine Nitrite (Negative) Urine Bilirubin (Negative) Urine Urobilinogen (Normal) mg/dL Ur Leukocyte Esterase (Negative) Urine Microscopic RBC (0-3) per hpf Urine Microscopic WBC (0-3) per hpf Ur Squamous Epith Cells (None-Few) per lpf Urine Bacteria (None-Few) per hpf Hyaline Casts (None-Few) per lpf Ur Culture Indicated? (NO) 04/08/17 04/08/17 04/09/17 Range/Units 23:50 23:50 00:23 WBC (4.3-11.1) K/mcL RBC (4.19-5.50) M/mcL Hgb (12.9-16.9) g/dL Hct (37.5-50.1) % MCV (83.0-100.0) fL MCH (28.0-33.3) pg MCHC (31.6-35.5) g/dL RDW (11.5-14.5) % Plt Count (140-400) K/mcL MPV (9.4-12.4) fL Immature Gran % (0-4) % Seg Neutrophils % % Lymphocytes % % Monocytes % % Eosinophils % % Basophils % % Neutrophils # (1.6-8.9) K/mcL Lymphocytes # (0.6-4.6) K/mcL Monocytes # (0.0-1.3) K/mcL Eosinophils # (0.0-0.6) K/mcL Basophils # (0.0-0.2) K/mcL Sodium (136-145) mEq/L Potassium (3.5-4.5) mEq/L Chloride (98-109) mEq/L Carbon Dioxide (19-29) mEq/L BUN (8-26) mg/dL Creatinine (0.72-1.25) mg/dL Est GFR ( Amer) (> 60) Est GFR (Non-Af Amer) (> 60) BUN/Creatinine Ratio (6-26) Glucose (70-99) mg/dL Calculated Osmolality (280-300) Lactic Acid (0.5-2.2) mmol/L Calcium (8.6-10.8) mg/dL Troponin I 0.02 (0-0.03) ng/mL B-Natriuretic Peptide 61 (0-100) pg/mL Urine Color Yellow (Yellow) Urine Clarity Clear (Clear) Urine pH 5.5 (5.0-8.0) pH Units Ur Specific [place] 1.027 H (1.010-1.025) Urine Protein Trace (Neg-Trace) mg/dL Urine Glucose (UA) Normal (Normal) mg/dL Urine Ketones 40 H (Negative) mg/dL Urine Blood Negative (Negative) Urine Nitrite Negative (Negative) Urine Bilirubin Negative (Negative) Urine Urobilinogen Normal (Normal) mg/dL Ur Leukocyte Esterase Negative (Negative) Urine Microscopic RBC 3-5 H (0-3) per hpf Urine Microscopic WBC 0-3 (0-3) per hpf Ur Squamous Epith Cells None Seen (None-Few) per lpf Urine Bacteria None Seen (None-Few) per hpf Hyaline Casts None Seen (None-Few) per lpf Ur Culture Indicated? NO (NO) 04/09/17 Range/Units 02:24 WBC (4.3-11.1) K/mcL RBC (4.19-5.50) M/mcL Hgb (12.9-16.9) g/dL Hct (37.5-50.1) % MCV (83.0-100.0) fL MCH (28.0-33.3) pg MCHC (31.6-35.5) g/dL RDW (11.5-14.5) % Plt Count (140-400) K/mcL MPV (9.4-12.4) fL Immature Gran % (0-4) % Seg Neutrophils % % Lymphocytes % % Monocytes % % Eosinophils % % Basophils % % Neutrophils # (1.6-8.9) K/mcL Lymphocytes # (0.6-4.6) K/mcL Monocytes # (0.0-1.3) K/mcL Eosinophils # (0.0-0.6) K/mcL Basophils # (0.0-0.2) K/mcL Sodium (136-145) mEq/L Potassium (3.5-4.5) mEq/L Chloride (98-109) mEq/L Carbon Dioxide (19-29) mEq/L BUN (8-26) mg/dL Creatinine (0.72-1.25) mg/dL Est GFR ( Amer) (> 60) Est GFR (Non-Af Amer) (> 60) BUN/Creatinine Ratio (6-26) Glucose (70-99) mg/dL Calculated Osmolality (280-300) Lactic Acid 0.8 (0.5-2.2) mmol/L Calcium (8.6-10.8) mg/dL Troponin I (0-0.03) ng/mL B-Natriuretic Peptide (0-100) pg/mL Urine Color (Yellow) Urine Clarity (Clear) Urine pH (5.0-8.0) pH Units Ur Specific [place] (1.010-1.025) Urine Protein (Neg-Trace) mg/dL Urine Glucose (UA) (Normal) mg/dL Urine Ketones (Negative) mg/dL Urine Blood (Negative) Urine Nitrite (Negative) Urine Bilirubin (Negative) Urine Urobilinogen (Normal) mg/dL Ur Leukocyte Esterase (Negative) Urine Microscopic RBC (0-3) per hpf Urine Microscopic WBC (0-3) per hpf Ur Squamous Epith Cells (None-Few) per lpf Urine Bacteria (None-Few) per hpf Hyaline Casts (None-Few) per lpf Ur Culture Indicated? (NO) - Radiology Data Radiology results reviewed: Yes I reviewed the patient's radiology results. - EKG Data EKG #1 EKG attestation: Yes I reviewed and interpreted this EKG. EKG results narrative: Sinus tachycardia at a rate of 120. FL interval is 176. QRS duration is 103. QT is 308. QTC is 379. No signs of acute ischemia. Frequent PVCs. No significant change from previous EKG dated 03/02/2017. Attestation Statement - Attestation Attestation: I examined this patient and my medical decision-making was reviewed with the JIVE DEVELOPER/PA/Advanced Practice Nurse/Resident Physician. I agree with the documented findings, disposition and treatment plan as described except to the extent set forth below. Patient emergency department complaining of shortness of breath. Recently finished chemotherapy for lung cancer. Dry cough no fever. On examination his lungs are clear and is in no respiratory distress. Plan. Labs and CTA. CT shows pneumonia. Antibiotics and admitted.
[2017-04-09] MEDS ORDERED: Vancomycin 1,250 MG in D5% in Water 250 ML IVPB ONE (02:09)
[2017-04-09] MEDS ORDERED: Piperacillin/Tazobactam 3.375 GM in D5% in Water (Mini-Bag+) 100 ML IVPB ONE (02:09)
[2017-04-09] MEDS ORDERED: Levofloxacin 750 MG/150 ML 750 MG/150 ML BAG IVPB ONE (02:09)
[2017-04-09] MEDS ORDERED: 0.9 % Sodium Chloride 1,000 ML IVC ONE (02:14)
--- NOTE | 2017-04-09 04:13 | Internal Med History&Physical ---
Date of Encounter: 04/09/17 Time of Encounter: 04:13 Assessment and Plan (1) Pneumonia Current visit: Yes Status: Acute Patient has sciatica pneumonia in the right lower lobe. Treat for Healthcare associated pneumonia levofloxacin, Zosyn and vancomycin. Sputum cultures. Qualifiers: Pneumonia type: due to unspecified organism Laterality: right Lung location: lower lobe of lung Qualified Code(s): J18.1 - Lobar pneumonia, unspecified organism (2) Sepsis Current visit: Yes Status: Acute Secondary to pneumonia. Treat with IV fluids and antibiotics as described above. Lactate level is not elevated. Qualifiers: Sepsis type: sepsis due to unspecified organism Qualified Code(s): A41.9 - Sepsis, unspecified organism (3) Adenocarcinoma of lung Current visit: Yes Status: Chronic Pt is s/p chemotherapy and radiation therapy. follow-up with Oncologist Qualifiers: Laterality: unspecified laterality Qualified Code(s): C34.90 - Malignant neoplasm of unspecified part of unspecified bronchus or lung (4) Tachycardia Current visit: Yes Status: Acute Secondary to sepsis/pneumonia. IV fluids (5) COPD (chronic obstructive pulmonary disease) Current visit: Yes Status: Chronic Bronchodilators just as needed. Continue home medications. Qualifiers: COPD type: unspecified COPD Qualified Code(s): J44.9 - Chronic obstructive pulmonary disease, unspecified (6) Chronic respiratory failure Current visit: Yes Status: Acute Continue oxygen Qualifiers: Respiratory failure complication: hypoxia Qualified Code(s): J96.11 - Chronic respiratory failure with hypoxia (7) CAD (coronary artery disease) Current visit: Yes Status: Chronic Continue home medications. No active chest pain at this time. Qualifiers: Coronary Disease-Associated Artery/Lesion type: [place] artery [place] vs. transplanted heart: [place] heart Associated angina: without angina Qualified Code(s): I25.10 - Atherosclerotic heart disease of [place] coronary artery without angina pectoris (8) Tobacco abuse Current visit: Yes Status: Acute Counseled for smoking cessation. Patient does not want nicotine patches. (9) DVT prophylaxis Current visit: Yes [facility]: [facility] - H&P: HPI Chief complaint: Shortness of breath Admitted From: Emergency Dept Plans for Post Hospital Care: Home History of present illness: Mr. Carbone is a 66 year old male with h/o stage III adenocarcinoma of the lung s/p chemotherapy and radiation therapy, COPD, chronic respiratory failure on home oxygen intermittently; coronary artery disease s/p stent placement; recent hospitalization in February 2017 with odynophagia along with generalized weakness he apparently treated with antibiotics (pneumonia). He presents to the emergency department with history of shortness of breath for about 4 days and is worsening. He reports shortness of breath on mild minimal exertion. He reports dry cough and cold sweats. He denies chest pain, nausea, vomiting, abdominal pain, dysuria, hematuria, or bowel changes. He was evaluated in the emergency department and imaging showed RLL pneumonia. He was started on levofloxacin, vancomycin and Zosyn for HCAP. He is admitted to the hospitalist service for further management. Past Med Surg Social Fam HX - Past Medical History Medical history: cancer, COPD, hyperlipidemia, myocardial infarction Psychiatric history: no psych history - Past Surgical History Surgical History: other - Social History Smoking Status: Current every day smoker Packs per day: 1.5 Smokeless Tobacco Status: No Alcohol use: none Drug use: none - Family History Mother Living Status: Hx Family Cardiac Disorders: Yes (chf) Internal Medicine - H&P: Meds Aspirin Enteric Coated [Aspirin EC] 81 mg PO DAILY #30 tablet. 10/09/15 [Rx] Carvedilol [Coreg] 3.125 mg PO BIDWM #60 tablet 10/09/15 [Rx] Clopidogrel [Plavix] 75 mg PO DAILY #30 tablet 10/09/15 [Rx] Lisinopril [Zestril] 5 mg PO DAILY #30 tablet 10/09/15 [Rx] Atorvastatin [Lipitor] 80 mg PO HS 11/23/16 [History] Fluticasone Propionate Nasal [Flonase] 2 spray NS DAILY 11/23/16 [History] Albuterol Sulfate [Proair Hfa] 2 puff IH Q4H PRN 11/29/16 [History] Budesonide/Formoterol 160/4.5 [Symbicort 160/4.5] 2 puff IH BIDR 11/29/16 [ History] Multivitamin [One Daily Essential] 1 tab PO DAILY 11/29/16 [History] Omeprazole [PriLOSEC] 40 mg PO DAILY #30 cap 01/27/17 [Rx] Mag Hydrox/Al Hydrox/Simeth [Maalox] 5 - 10 ml PO Q4H PRN #520 oral.susp [Rx] Magic Mouthwash [Magic Mouthwash BLM] 10 ml PO QID PRN #240 ml 02/28/17 [Rx] Sucralfate [Carafate] 1 gm PO QIDAC #120 tablet 02/28/17 [Rx] Albuterol Sulfate [Proair Hfa] 1 puff IH 04/09/17 [History] Aspirin [Lo-Dose Aspirin EC] 81 mg PO 04/09/17 [History] Atorvastatin [Lipitor] 80 mg PO HS 04/09/17 [History] Carvedilol 3.125 mg PO BID 04/09/17 [History] Clopidogrel [Plavix] 75 mg PO DAILY 04/09/17 [History] Fluticasone Propionate Nasal 04/09/17 [History] Symbicort 160/4.5 2 puff Q4HR PRN 04/09/17 [History] Allergies No Known Allergies Allergy (Verified 03/02/17 11:59) All Systems PM: A 10-system review of systems was performed and is negative for pertinent findings except as documented above in the HPI. - Constitutional Vitals: Temp Pulse Resp BP Pulse Ox 98.7 F 125 18 110/63 94 04/08/17 23:32 04/08/17 23:52 04/09/17 03:10 04/09/17 03:10 04/08/17 23:52 Exam: General: Not in acute distress at the time of my evaluation HEENT: Oral mucosa is moist. No conjunctival palor or scleral icterus Neck: No obvious neck swellings Lungs: Right basal crackles present Cardiac: Regular rate and rhythm. No significant murmurs Abdomen: Soft, non tender. Bowel sounds present Genitourinary: No tolentino catheter Neurological: Alert and oriented. No gross localizing deficits Psych: Not aggressive or agitated Extremities: no significant leg edema Skin: No generalized rash Internal Med - H&P Results - Labs CBC & Chem 7: 04/08/17 23:50 04/08/17 23:50 - EKG Data -: EKG Interpreted by Myself EKG shows normal: sinus rhythm Rate: tachycardia - Impressions ITS Impressions Chest CT 04/09/17 00:00 IMPRESSION: Stable right upper lobe central nodule measuring 2.6 x 1.6 cm in size consistent with known right upper lobe lung cancer. New tree-in-bud and ground-glass nodular opacities throughout the right lower lobe with patchy right basilar airspace consolidation may represent superimposed acute infectious/ inflammatory process such as atypical pneumonia. New and increased borderline right paratracheal, precarinal and AP window lymphadenopathy. This may represent worsening metastatic lymphadenopathy versus reactive lymphadenopathy from an acute right lower lobe infectious/ inflammatory process. Moderate centrilobular emphysema. D/ / Juan Cole MD / Juan Cole MD Interpreting Provider: Juan Cole MD
[2017-04-09] MEDS ORDERED: Naloxone 0.4 MG/ML INJ IVP PRN (04:40)
[2017-04-09] MEDS ORDERED: Ipratropium/Albuterol Neb 3 ML IH PRN (04:45)
[2017-04-09] MEDS ORDERED: Vancomycin 1,250 MG in D5% in Water 250 ML IVPB SCH (05:00)
[2017-04-09] MEDS: 0.9 % Sodium Chloride 500 ML IVC SCH ×6 (05:51→13:41)
[2017-04-09] MEDS: *HR* Enoxaparin 40 MG/0.4 ML SYRINGE SQ SCH (05:55)
[2017-04-09] MEDS: 0.9 % Sodium Chloride 1,000 ML IVC SCH ×2 (06:56→20:16)
[2017-04-09] MEDS: Piperacillin/Tazobactam 3.375 GM in D5% in Water (Mini-Bag+) 100 ML IVPB SCH ×2 (06:58→16:17)
[2017-04-09] MEDS: Lactobacillus 1 EACH CAP.SPRINK PO SCH ×2 (10:08→20:13)
[2017-04-09] MEDS ORDERED: Acetaminophen 325 MG TABLET PO PRN (10:39)
--- NOTE | 2017-04-09 10:50 | Internal Med Progress Note ---
<Yaron Qureshi - Last Filed: 04/09/17 12:06> Date of Encounter: 04/09/17 Time of Encounter: 10:48 - Assessment and plan (1) Sepsis Current Visit: Yes Status: Acute Assessment and plan: Improving. Patient presented with tachypnea, tachycardia in the setting of right lower lung lobe pneumonia. Tachycardia improving, tachypnea resolved and blood pressure stable. Plan: - Continue with broad-spectrum antibiotics - Blood cultures ordered and received by lab results pending. - Continue with current fluids. Qualifiers: Sepsis type: sepsis due to unspecified organism Qualified Code(s): A41.9 - Sepsis, unspecified organism (2) Pneumonia Current Visit: Yes Status: Acute Assessment and plan: Patient admitted with shortness of breath, hypoxia, tachycardia, chest CT demonstrates nutrient budding groundglass nodule opacities throughout the right lower lobe with patchy right basilar airspace consolidation which may represent superimposed acute infection/inflammation processes such as atypical pneumonia - Given the recent hospitalization this of the hospital associated pneumonia Plan: - Broad spectrum antibiotics including vancomycin and Zosyn - Optimize respiratory inhalers - No signs of end organ damage, blood pressure is stable - Continue with normal saline at 80 ML's per hour Qualifiers: Pneumonia type: due to unspecified organism Laterality: right Lung location: lower lobe of lung Qualified Code(s): J18.1 - Lobar pneumonia, unspecified organism (3) Tachycardia Current Visit: Yes Status: Acute Assessment and plan: improving. Tachycardia in the setting of sepsis. Patient is without dizziness, light headedness. Plan: - Continue treating underline right lower lung pneumonia - continue cardiac monitoring. (4) COPD (chronic obstructive pulmonary disease) Current Visit: Yes Status: Chronic Assessment and plan: Patient has known hx of COPD and is seen in the outpatient setting by Dr. Ramirez. Current COPD stable. Plan: - Continue Duonebs as scheduled - Restart home albuterol inhaler - Restart Symbicort home dose - Nicotine patch if patient desires. Qualifiers: COPD type: unspecified COPD Qualified Code(s): J44.9 - Chronic obstructive pulmonary disease, unspecified (5) Dyspnea Current Visit: No Status: Acute Assessment and plan: 66-year-old male with known right upper lung cancer presenting with shortness of breath and found to have tree-in-bud pattern and right lower lobe lung consistent with pneumonia. Patient had increased oxygen demand. Dry hacking cough no sputum production. -Currently no fevers, chills or sweating. - Oxygen requirements are improving -Continue to wean oxygen and monitor Qualifiers: Qualified Code(s): R06.00 - Dyspnea, unspecified (6) CAD (coronary artery disease) Current Visit: Yes Status: Chronic Assessment and plan: Known history of coronary artery disease Plan: - Continue with atorvastatin, Plavix, aspirin, lisinopril Qualifiers: Coronary Disease-Associated Artery/Lesion type: [place] artery [place] vs. transplanted heart: [place] heart Associated angina: without angina Qualified Code(s): I25.10 - Atherosclerotic heart disease of [place] coronary artery without angina pectoris (7) Adenocarcinoma of lung Current Visit: Yes Status: Chronic Assessment and plan: Significant tobacco abuse history with COPD, coronary artery disease and current lung cancer. - Lung nodule measuring 2.6 x 1.6 cm in size consistent with known right upper lobe lung cancer seen on CT of the chest. Qualifiers: Laterality: right Qualified Code(s): C34.91 - Malignant neoplasm of unspecified part of right bronchus or lung (8) Tobacco abuse Current Visit: Yes Status: Acute Assessment and plan: Significant tobacco abuse history with COPD, coronary artery disease and current lung cancer. - Lung nodule measuring 2.6 x 1.6 cm in size consistent with known right upper lobe lung cancer seen on CT of the chest. - After smoking cessation discussion patient states that he has no intentions of quitting smoking. (9) Hyperlipemia Current Visit: No Status: Acute Assessment and plan: Known history of hyperlipidemia, patient is currently on Lipitor 80 mg by mouth at bedtime Qualifiers: Hyperlipidemia type: unspecified Qualified Code(s): E78.5 - Hyperlipidemia , unspecified (10) DVT prophylaxis Current Visit: Yes Status: Acute Assessment and plan: Lovenox 40 mg subcutaneous daily - Subjective Interval history: Mr. Carbone 66-year-old male is seen and evaluated patient bedside this morning. He is alert awake interactive no acute distress. He says that his shortness of breath is improved but he continues to have some continued discomfort. He denies using home oxygen but does occasionally with activity. He says that he has been smoking for 53 years and even with his lung cancer has no desire of quitting. He denies any chest pain but continues to have a dry hacking cough. He denies any palpitations, abdominal pain nausea vomiting diarrhea constipation or swelling in his extremities. His that his last radiation and chemotherapy were back in February. Since then he has been hospitalized once in the last month for radiation-induced esophageal ulcer and pneumonia. - Constitutional Vitals: Temp Pulse Resp BP Pulse Ox 99.3 F 107 16 118/72 97 04/09/17 07:28 04/09/17 07:28 04/09/17 07:28 04/09/17 07:28 04/09/17 07:28 Exam: General: Patient alert, awake, oriented 3, interactive, in no acute distress, pale skin HEENT: Normocephalic, atraumatic, pupils equal reactive to light, nasal cavity patent and open septum median position, oral mucosa moist, uvula midline, neck supple trachea midline no palpable lymphadenopathy, no thyromegaly. Chest: Symmetric bilateral correlating with respiratory effort, effort nonlabored. Cardiac: Tachycardia, positive S1, S2, no bruits appreciated bilateral carotids , Radial pulses 2+ bilateral, posterior tibial and dorsal pedal pulses 2+ bilateral. Respiratory: Wheezing appreciated the left upper lung lobe, all other lung al demonstrated poor inspiratory expiratory breath sounds Abdomen: Soft, nontender, positive bowel sounds, no palpable masses appreciated on examination Extremities: Symmetric bilateral, no erythema or edema, patient moving all 4 extremities spontaneously. Neurologic: No focal deficits appreciated on examination. Face symmetric, muscle strength symmetric bilateral upper and lower extremities. Internal Medicine: Result - Labs CBC & Chem 7: 04/08/17 23:50 04/08/17 23:50 Consult Discharge Plan - Plan Referrals: Bushra Carrillo MD [Primary Care Provider] - <Babs Aranda - Last Filed: 04/09/17 14:52> Date of Encounter: 04/09/17 - Constitutional Vitals: Temp Pulse Resp BP Pulse Ox 98.5 F 103 16 107/66 95 04/09/17 11:14 04/09/17 11:14 04/09/17 11:14 04/09/17 11:14 04/09/17 11:14 Internal Medicine: Result - Labs CBC & Chem 7: 04/08/17 23:50 04/08/17 23:50 - Attending Attestation I saw and examined pt. I have discussed with Resident Dr Qureshi regarding pt's management plan. I agree with the documentation. Pt is a current smoker, lung cancer s/p chemo and radiation therapy. Present with pneumonia, will cont abx treatment with vanco, zosyn and levaquin. Follow up blood culture..
[2017-04-09] MEDS: Vancomycin 1,250 MG in D5% in Water 250 ML IVPB SCH (14:04)
[2017-04-09] MEDS: Budesonide/Formoterol 160/4.5 MDI IH SCH (20:35)
[2017-04-10] MEDS: Piperacillin/Tazobactam 3.375 GM in D5% in Water (Mini-Bag+) 100 ML IVPB SCH ×4 (00:30→23:40)
[2017-04-10] MEDS: Vancomycin 1,250 MG in D5% in Water 250 ML IVPB SCH ×2 (03:42→14:10)
[2017-04-10 04:30] LABS: Basophils % 0.4 %; Eosinophils # 0.2 K/mcL (0.0-0.6); Eosinophils % 2.4 %; Hematocrit 31.2 % (37.5-50.1); Hemoglobin 9.6 g/dL (12.9-16.9); Immature Granulocytes % 0.6 % (0-4); Lymphocytes # 0.9 K/mcL (0.6-4.6); Lymphocytes % 12.6 %; Mean Corpuscular HGB Conc 30.8 g/dL (31.6-35.5); Mean Corpuscular Hemoglobin 27.6 pg (28.0-33.3); Mean Corpuscular Volume 89.7 fL (83.0-100.0); Mean Platelet Volume 11.2 fL (9.4-12.4); Monocytes % 14.3 %; Platelet Count 175 K/mcL (140-400); Red Blood Count 3.48 M/mcL (4.19-5.50); Red Cell Distribution Width 18.1 % (11.5-14.5); Segmented Neutrophils % 69.7 %
[2017-04-10 04:49] LABS: Alanine Aminotransferase 11 Units/L (0-55); Albumin 2.5 g/dL (3.5-5.0); Albumin/Globulin Ratio 0.8 (1.1-2.2); Alkaline Phosphatase 66 Units/L (38-126); Aspartate Amino Transferase 14 Units/L (5-34); BUN/Creatinine Ratio 8 (6-26); Bilirubin,Total 0.5 mg/dL (0.2-1.2); Blood Urea Nitrogen 5 mg/dL (8-26); Calcium 8.3 mg/dL (8.6-10.8); Carbon Dioxide 21 mEq/L (19-29); Chloride 109 mEq/L (98-109); Globulin 3.1 g/dL (2.4-3.5); Glucose 109 mg/dL (70-99); Osmolality,Calculated 286 (280-300); Potassium 3.4 mEq/L (3.5-4.5); Sodium 139 mEq/L (136-145); Total Protein 5.6 g/dL (6.0-8.3); eGFR For African Americans > 60 (> 60); eGFR For Non-African Americans > 60 (> 60)
[2017-04-10] MEDS ORDERED: Levofloxacin 750 MG/150 ML 750 MG/150 ML BAG IVPB SCH (05:00)
[2017-04-10] MEDS: *HR* Enoxaparin 40 MG/0.4 ML SYRINGE SQ SCH (06:44)
[2017-04-10] MEDS: Levofloxacin 750 MG/150 ML 750 MG/150 ML BAG IVPB SCH (06:44)
[2017-04-10] MEDS: Budesonide/Formoterol 160/4.5 MDI IH SCH ×2 (07:54→19:52)
--- NOTE | 2017-04-10 08:20 | Internal Med Progress Note ---
<Yaron Qureshi - Last Filed: 04/10/17 13:22> Date of Encounter: 04/10/17 Time of Encounter: 08:19 - Assessment and plan (1) Sepsis Current Visit: Yes Status: Acute Assessment and plan: Improving. Patient presented with tachypnea, tachycardia in the setting of right lower lung lobe pneumonia. Tachycardia improving, tachypnea resolved and blood pressure stable. Plan: - De-escalate to Levaquin only - Blood cultures ordered and received by lab, no growth thus far. - Discontinue IV fluids Qualifiers: Sepsis type: sepsis due to unspecified organism Qualified Code(s): A41.9 - Sepsis, unspecified organism (2) Pneumonia Current Visit: Yes Status: Acute Assessment and plan: Patient admitted with shortness of breath, hypoxia, tachycardia, chest CT demonstrates nutrient budding groundglass nodule opacities throughout the right lower lobe with patchy right basilar airspace consolidation which may represent superimposed acute infection/inflammation processes such as atypical pneumonia - Given the recent hospitalization this of the hospital associated pneumonia 04/10/2017: Continues to show improvement, breath sounds improved compared to yesterday. Oxygen weaning down appropriately Plan: - Antibiotics as discussed above. - Optimize respiratory inhalers - No signs of end organ damage, blood pressure is stable - Bedside incentive spirometer Qualifiers: Pneumonia type: due to unspecified organism Laterality: right Lung location: lower lobe of lung Qualified Code(s): J18.1 - Lobar pneumonia, unspecified organism (3) Tachycardia Current Visit: Yes Status: Acute Assessment and plan: improving. Tachycardia in the setting of sepsis, patient is also receiving beta stimulating inhalers. Patient is asymptomatic. Plan: - Continue treating underline right lower lung pneumonia - continue cardiac monitoring. (4) COPD (chronic obstructive pulmonary disease) Current Visit: Yes Status: Chronic Assessment and plan: Patient has known hx of COPD and is seen in the outpatient setting by Dr. Ramirez. Current COPD stable. Plan: - Continue Duonebs as scheduled - Restart home albuterol inhaler - Restart Symbicort home dose - Nicotine patch if patient desires. Qualifiers: COPD type: unspecified COPD Qualified Code(s): J44.9 - Chronic obstructive pulmonary disease, unspecified (5) Dyspnea Current Visit: No Status: Acute Assessment and plan: 66-year-old male with known right upper lung cancer presenting with shortness of breath and found to have tree-in-bud pattern and right lower lobe lung consistent with pneumonia. Patient had increased oxygen demand. Dry hacking cough no sputum production. -Continues no fevers, chills or sweating. - Oxygen requirements are improving, continue to wean as tolerated - Patient will require a 6 minute walk test prior to discharge to assess respiratory status and home oxygen requirements and follow up with pulmonology Qualifiers: Qualified Code(s): R06.00 - Dyspnea, unspecified (6) CAD (coronary artery disease) Current Visit: Yes Status: Chronic Assessment and plan: Known history of coronary artery disease Plan: - Continue with atorvastatin, Plavix, aspirin, lisinopril Qualifiers: Coronary Disease-Associated Artery/Lesion type: [place] artery [place] vs. transplanted heart: [place] heart Associated angina: without angina Qualified Code(s): I25.10 - Atherosclerotic heart disease of [place] coronary artery without angina pectoris (7) Adenocarcinoma of lung Current Visit: Yes Status: Chronic Assessment and plan: Significant tobacco abuse history with COPD, coronary artery disease and current lung cancer. - Lung nodule measuring 2.6 x 1.6 cm in size consistent with known right upper lobe lung cancer seen on CT of the chest. Qualifiers: Laterality: right Qualified Code(s): C34.91 - Malignant neoplasm of unspecified part of right bronchus or lung (8) Tobacco abuse Current Visit: Yes Status: Acute Assessment and plan: Significant tobacco abuse history with COPD, coronary artery disease and current lung cancer. - Lung nodule measuring 2.6 x 1.6 cm in size consistent with known right upper lobe lung cancer seen on CT of the chest. - After smoking cessation discussion patient states that he has no intentions of quitting smoking. (9) Hyperlipemia Current Visit: No Status: Acute Assessment and plan: Known history of hyperlipidemia, patient is currently on Lipitor 80 mg by mouth at bedtime Qualifiers: Hyperlipidemia type: unspecified Qualified Code(s): E78.5 - Hyperlipidemia , unspecified (10) Hypokalemia Current Visit: Yes Status: Acute Assessment and plan: Potassium 3.4 in the setting of acute illness. Plan: - 40meq PO once. - Recheck K+ in am (11) DVT prophylaxis Current Visit: Yes Status: Acute Assessment and plan: Lovenox 40 mg subcutaneous daily - Subjective Interval history: Mr. Carbone 66-year-old male is seen and evaluated patient bedside this morning. He is alert awake interactive no acute distress.he denies any fevers, chills, night sweats or any other acute changes overnight. He continues to have a cough without sputum production. He feels that his breathing is slightly improved compared to yesterday and is requiring less oxygen. He denies any other concerns at this time, he still maintains an appetite and regular urine output. - Constitutional Vitals: Temp Pulse Resp BP Pulse Ox 98.2 F 104 18 140/91 91 04/10/17 07:06 04/10/17 07:06 04/10/17 07:06 04/10/17 07:06 04/10/17 07:06 Exam: General: Patient alert, awake, oriented 3, interactive, in no acute distress HEENT: Normocephalic, atraumatic, pupils equal reactive to light, nasal cavity patent and open septum median position, oral mucosa moist, uvula midline, neck supple trachea midline no palpable lymphadenopathy, no thyromegaly. Chest: Symmetric bilateral correlating with respiratory effort, effort nonlabored. Cardiac: Regular rate and rhythm, positive S1, S2, no bruits appreciated bilateral carotids, Radial pulses 2+ bilateral, posterior tibial and dorsal pedal pulses 2+ bilateral. Respiratory: Diffusely diminished inspiratory expiratory breath sounds. Diffuse inspiratory expiratory low grade wheeze. Abdomen: Soft, nontender, positive bowel sounds, no palpable masses appreciated on examination Extremities: Symmetric bilateral, no erythema or edema, patient moving all 4 extremities spontaneously. Neurologic: No focal deficits appreciated on examination. Face symmetric, muscle strength symmetric bilateral upper and lower extremities. Internal Medicine: Result - Labs CBC & Chem 7: 04/10/17 03:25 04/10/17 03:25 Labs: Short CBC 04/10/17 Range/Units 03:25 WBC 7.1 (4.3-11.1) K/mcL Hgb 9.6 L D (12.9-16.9) g/dL Hct 31.2 L (37.5-50.1) % Plt Count 175 (140-400) K/mcL Neutrophils # 5.0 (1.6-8.9) K/mcL BMP 04/10/17 03:25 Sodium 139 Potassium 3.4 L Chloride 109 Carbon Dioxide 21 BUN 5 L Creatinine 0.62 L Glucose 109 H Calcium 8.3 L Liver Function 06/19/17 Range/Units 03:25 Total Bilirubin 0.5 (0.2-1.2) mg/dL AST 14 (5-34) Units/L ALT 11 (0-55) Units/L Alkaline Phosphatase 66 (38-126) Units/L Albumin 2.5 L D (3.5-5.0) g/dL Consult Discharge Plan - Plan Additional Instructions: pcp requested Referrals: Bushra Carrillo MD [Primary Care Provider] - <ManojArshanibal - Last Filed: 04/10/17 13:43> Date of Encounter: 04/10/17 - Constitutional Vitals: Temp Pulse Resp BP Pulse Ox 98.7 F 101 18 136/96 96 04/10/17 12:05 04/10/17 12:05 04/10/17 12:05 04/10/17 12:05 04/10/17 12:05 Internal Medicine: Result - Labs CBC & Chem 7: 04/10/17 03:25 04/10/17 03:25 Labs: Short CBC 04/10/17 Range/Units 03:25 WBC 7.1 (4.3-11.1) K/mcL Hgb 9.6 L D (12.9-16.9) g/dL Hct 31.2 L (37.5-50.1) % Plt Count 175 (140-400) K/mcL Neutrophils # 5.0 (1.6-8.9) K/mcL BMP 04/10/17 03:25 Sodium 139 Potassium 3.4 L Chloride 109 Carbon Dioxide 21 BUN 5 L Creatinine 0.62 L Glucose 109 H Calcium 8.3 L Liver Function 04/10/17 Range/Units 03:25 Total Bilirubin 0.5 (0.2-1.2) mg/dL AST 14 (5-34) Units/L ALT 11 (0-55) Units/L Alkaline Phosphatase 66 (38-126) Units/L Albumin 2.5 L D (3.5-5.0) g/dL - Attending Attestation I saw and examined pt. I have discussed with Resident Dr Qureshi regarding pt's management plan. I agree with the documentation. Pt feels SOB has significantly improved. Will deescalate Abx.
[2017-04-10] MEDS: Lactobacillus 1 EACH CAP.SPRINK PO SCH ×2 (09:44→20:47)
[2017-04-10] MEDS: Aspirin Enteric Coated 81 MG Tablet PO SCH (09:44)
[2017-04-10] MEDS ORDERED: Aminoglycoside Consult 1 EACH MC ONE (12:04)
[2017-04-10] MEDS: Sucralfate 1 GM TABLET PO SCH ×2 (16:37→20:47)
--- NOTE | 2017-04-10 16:49 | Electrocardiograph Report ---
[address] [address] Test Date: 2017-04-08 Pat Name: Yaron Carbone Department: 103 Room: [id number] Gender: M Supervising Chef: : 1950 Requested By: Patrica Morgan Order Number: [id number] Reading MD: Nate Trujillo MD Measurements Intervals [place] Rate: 120 P: 72 HI: 176 QRS: 84 QRSD: 103 T: 47 QT: 308 QTc: 379 Interpretive Statements SINUS TACHYCARDIA WITH FREQUENT VENTRICULAR PREMATURE COMPLEXES Poor R wave progression Electronically Signed On 04-10-2017 16:48:08 EDT by Nate Trujillo MD
[2017-04-11] MEDS ORDERED: Vancomycin 1,500 MG in D5% in Water 250 ML IVPB SCH (02:00)
[2017-04-11 04:55] LABS: Basophils # 0.1 K/mcL (0.0-0.2); Basophils % 0.5 %; Eosinophils # 0.2 K/mcL (0.0-0.6); Eosinophils % 2.5 %; Hematocrit 32.1 % (37.5-50.1); Hemoglobin 10.4 g/dL (12.9-16.9); Lymphocytes # 1.1 K/mcL (0.6-4.6); Lymphocytes % 12.4 %; Mean Corpuscular HGB Conc 32.4 g/dL (31.6-35.5); Mean Corpuscular Hemoglobin 27.4 pg (28.0-33.3); Mean Corpuscular Volume 84.5 fL (83.0-100.0); Mean Platelet Volume 11.1 fL (9.4-12.4); Monocytes # 1.2 K/mcL (0.0-1.3); Monocytes % 13.2 %; Neutrophils # 6.5 K/mcL (1.6-8.9); Platelet Count 249 K/mcL (140-400); Red Cell Distribution Width 17.7 % (11.5-14.5); Segmented Neutrophils % 70.4 %
[2017-04-11] MEDS: Levofloxacin 750 MG/150 ML 750 MG/150 ML BAG IVPB SCH (05:03)
[2017-04-11] MEDS: *HR* Enoxaparin 40 MG/0.4 ML SYRINGE SQ SCH (05:04)
[2017-04-11 05:07] LABS: Alanine Aminotransferase 23 Units/L (0-55); Albumin 2.7 g/dL (3.5-5.0); Albumin/Globulin Ratio 0.7 (1.1-2.2); Alkaline Phosphatase 97 Units/L (38-126); Aspartate Amino Transferase 22 Units/L (5-34); BUN/Creatinine Ratio 4 (6-26); Bilirubin,Total 0.6 mg/dL (0.2-1.2); Blood Urea Nitrogen 3 mg/dL (8-26); Carbon Dioxide 23 mEq/L (19-29); Chloride 104 mEq/L (98-109); Globulin 3.7 g/dL (2.4-3.5); Glucose 108 mg/dL (70-99); Osmolality,Calculated 281 (280-300); Potassium 3.6 mEq/L (3.5-4.5); Sodium 137 mEq/L (136-145); Total Protein 6.4 g/dL (6.0-8.3); eGFR For African Americans > 60 (> 60); eGFR For Non-African Americans > 60 (> 60)
[2017-04-11] MEDS: Budesonide/Formoterol 160/4.5 MDI IH SCH ×2 (07:35→21:25)
[2017-04-11] MEDS: Sucralfate 1 GM TABLET PO SCH ×4 (08:24→20:11)
[2017-04-11] MEDS: Lactobacillus 1 EACH CAP.SPRINK PO SCH ×2 (08:24→20:10)
[2017-04-11] MEDS: Aspirin Enteric Coated 81 MG Tablet PO SCH (08:24)
--- NOTE | 2017-04-11 08:24 | Internal Med Progress Note ---
<Walt Baldwin P - Last Filed: 04/11/17 16:30> Date of Encounter: 04/11/17 - Constitutional Vitals: Temp Pulse Resp BP Pulse Ox 98.8 F 93 18 122/79 94 04/11/17 15:20 04/11/17 15:20 04/11/17 15:20 04/11/17 15:20 04/11/17 15:20 Internal Medicine: Result - Labs CBC & Chem 7: 04/11/17 03:27 04/11/17 03:27 Labs: Short CBC 04/11/17 Range/Units 03:27 WBC 9.2 (4.3-11.1) K/mcL Hgb 10.4 L (12.9-16.9) g/dL Hct 32.1 L (37.5-50.1) % Plt Count 249 (140-400) K/mcL Neutrophils # 6.5 (1.6-8.9) K/mcL BMP 04/11/17 03:27 Sodium 137 Potassium 3.6 Chloride 104 Carbon Dioxide 23 BUN 3 L Creatinine 0.68 L Glucose 108 H Calcium 9.0 Liver Function 04/11/17 Range/Units 03:27 Total Bilirubin 0.6 (0.2-1.2) mg/dL AST 22 (5-34) Units/L ALT 23 (0-55) Units/L Alkaline Phosphatase 97 (38-126) Units/L Albumin 2.7 L (3.5-5.0) g/dL - Impressions Impressions Chest CTA 04/11/17 14:30 IMPRESSION: 1. No evidence of pulmonary embolic disease. 2. Stable right upper lobe central pulmonary nodule with mediastinal and right hilar adenopathy consistent with the patient's known malignancy. 3. Mild progression of tree-in-bud infiltrate within the right lower lobe, now also apparent within the left lower lobe and right upper lobe. The findings are worrisome for a superimposed pneumonia, possibly opportunistic. Some dependent atelectasis within the lower lobes is also apparent. D/ / 04/11/2017 15:33:56 Justin Ferguson MD / jaden Interpreting Provider: Justin Ferguson MD Consult Discharge Plan - Plan Additional Instructions: pcp requested Referrals: Bushra Carrillo MD [Primary Care Provider] - - Attending Attestation I examined this patient and my medical decision-making was reviewed with the LEARNING AND DEVELOPMENT ANALYST/PA/Advanced Practice Nurse/Resident Physician. I agree with the documented findings, disposition and treatment plan as described except to the extent set forth below. ECHO CTA add steroids and BDAs <Yaron Qureshi - Last Filed: 04/11/17 16:46> Date of Encounter: 04/11/17 Time of Encounter: 08:20 - Assessment and plan (1) Sepsis Current Visit: Yes Status: Resolved Assessment and plan: Resolved. Plan: - De-escalate to Levaquin only - Blood cultures ordered and received by lab, no growth thus far. Qualifiers: Sepsis type: sepsis due to unspecified organism Qualified Code(s): A41.9 - Sepsis, unspecified organism (2) Pneumonia Current Visit: Yes Status: Acute Assessment and plan: Patient admitted with shortness of breath, hypoxia, tachycardia, chest CT demonstrates nutrient budding groundglass nodule opacities throughout the right lower lobe with patchy right basilar airspace consolidation which may represent superimposed acute infection/inflammation processes such as atypical pneumonia. Given the distribution of opacities and recent radiation therapy there could be a component of radiation pneumonitis - Given the recent hospitalization this of the hospital associated pneumonia 04/10/2017: Continues to show improvement, breath sounds improved compared to yesterday. Oxygen weaning down appropriately 04/11/2017: Patient continues to require increased oxygen demand but denies any fevers,chills, sweating. CTA of the chest today demonstrates new tree and bud pattern in the left upper and lower lobes. Need to consider other infectious causes such as possible fungal infection causing these symptoms. Consider pulmonology consult as patient may need bronchoscopy for further evaluation Plan: - Antibiotics as discussed above. - Optimize respiratory inhalers - No signs of end organ damage, blood pressure is stable - Bedside incentive spirometer - 6 minute home oxygen qualification Qualifiers: Pneumonia type: due to unspecified organism Laterality: right Lung location: lower lobe of lung Qualified Code(s): J18.1 - Lobar pneumonia, unspecified organism (3) Tachycardia Current Visit: Yes Status: Acute Assessment and plan: HR remains around 104. Tachycardia in the setting of right lower lobe tree and bud concerning for pneumonia and recent radiation therapy, patient is also receiving beta stimulating inhalers. Patient is asymptomatic. Plan: - Continue treating underline right lower lung pneumonia - continue cardiac monitoring. (4) COPD (chronic obstructive pulmonary disease) Current Visit: Yes Status: Chronic Assessment and plan: Patient has known hx of COPD and is seen in the outpatient setting by Dr. Ramirez. Current COPD stable. Plan: - Continue Duonebs as scheduled - Restart home albuterol inhaler - Restart Symbicort home dose - Nicotine patch if patient desires. Qualifiers: COPD type: unspecified COPD Qualified Code(s): J44.9 - Chronic obstructive pulmonary disease, unspecified (5) Dyspnea Current Visit: No Status: Acute Assessment and plan: 66-year-old male with known right upper lung cancer presenting with shortness of breath and found to have tree-in-bud pattern and right lower lobe lung consistent with pneumonia. Patient had increased oxygen demand. Dry hacking cough no sputum production. -Continues no fevers, chills or sweating. - Oxygen requirements are improving, continue to wean as tolerated - Patient will require a 6 minute walk test prior to discharge to assess respiratory status and home oxygen requirements and follow up with pulmonology Qualifiers: Qualified Code(s): R06.00 - Dyspnea, unspecified (6) CAD (coronary artery disease) Current Visit: Yes Status: Chronic Assessment and plan: Known history of coronary artery disease, previous NSTEMI Plan: - Continue with atorvastatin, Plavix, aspirin, lisinopril Qualifiers: Coronary Disease-Associated Artery/Lesion type: [place] artery [place] vs. transplanted heart: [place] heart Associated angina: without angina Qualified Code(s): I25.10 - Atherosclerotic heart disease of [place] coronary artery without angina pectoris (7) Adenocarcinoma of lung Current Visit: Yes Status: Chronic Assessment and plan: Significant tobacco abuse history with COPD, coronary artery disease and current lung cancer. - Lung nodule measuring 2.6 x 1.6 cm in size consistent with known right upper lobe lung cancer seen on CT of the chest. Qualifiers: Laterality: right Qualified Code(s): C34.91 - Malignant neoplasm of unspecified part of right bronchus or lung (8) Tobacco abuse Current Visit: Yes Status: Acute Assessment and plan: Significant tobacco abuse history with COPD, coronary artery disease and current lung cancer. - Lung nodule measuring 2.6 x 1.6 cm in size consistent with known right upper lobe lung cancer seen on CT of the chest. - After smoking cessation discussion patient states that he has no intentions of quitting smoking. (9) Hyperlipemia Current Visit: No Status: Acute Assessment and plan: Known history of hyperlipidemia, patient is currently on Lipitor 80 mg by mouth at bedtime Qualifiers: Hyperlipidemia type: unspecified Qualified Code(s): E78.5 - Hyperlipidemia , unspecified (10) Hypokalemia Current Visit: Yes Status: Acute Assessment and plan: Potassium 3.6, improved compared to yesterday. Plan: - 40meq PO once. - Recheck K+ in am (11) DVT prophylaxis Current Visit: Yes Status: Acute Assessment and plan: Lovenox 40 mg subcutaneous daily - Subjective Interval history: Mr. Carbone 66-year-old male is seen and evaluated patient bedside this morning. He is alert awake interactive no acute distress.he denies any fevers, chills, night sweats or any other acute changes overnight. He continues to have a cough without sputum production. He feels that his breathing is much improved but not back to his baseline. He denies any other problems at this time and asked about discharge. He has been fairly regular with his bowel movements and does not need any stool softeners at this time. - Constitutional Vitals: Temp Pulse Resp BP Pulse Ox 98.8 F 104 18 105/81 95 04/11/17 06:24 04/11/17 06:24 04/11/17 06:24 04/11/17 06:24 04/11/17 06:24 Exam: General: Patient alert, awake, oriented 3, interactive, in no acute distress HEENT: Normocephalic, atraumatic, pupils equal reactive to light, nasal cavity patent and open septum median position, oral mucosa moist, uvula midline, neck supple trachea midline no palpable lymphadenopathy, no thyromegaly. Chest: Symmetric bilateral correlating with respiratory effort, effort nonlabored. Cardiac: Regular rate and rhythm, positive S1, S2, no bruits appreciated bilateral carotids, Radial pulses 2+ bilateral, posterior tibial and dorsal pedal pulses 2+ bilateral. Respiratory: Reduce bronchial vesicular breath sounds diffusely with mild crackles in the left lower lung base. Abdomen: Soft, nontender, positive bowel sounds, no palpable masses appreciated on examination Extremities: Symmetric bilateral, no erythema or edema, patient moving all 4 extremities spontaneously. Neurologic: No focal deficits appreciated on examination. Face symmetric, muscle strength symmetric bilateral upper and lower extremities. Internal Medicine: Result - Labs CBC & Chem 7: 04/11/17 03:27 04/11/17 03:27 Labs: Short CBC 04/11/17 Range/Units 03:27 WBC 9.2 (4.3-11.1) K/mcL Hgb 10.4 L (12.9-16.9) g/dL Hct 32.1 L (37.5-50.1) % Plt Count 249 (140-400) K/mcL Neutrophils # 6.5 (1.6-8.9) K/mcL BMP 04/11/17 03:27 Sodium 137 Potassium 3.6 Chloride 104 Carbon Dioxide 23 BUN 3 L Creatinine 0.68 L Glucose 108 H Calcium 9.0 Liver Function 04/11/17 Range/Units 03:27 Total Bilirubin 0.6 (0.2-1.2) mg/dL AST 22 (5-34) Units/L ALT 23 (0-55) Units/L Alkaline Phosphatase 97 (38-126) Units/L Albumin 2.7 L (3.5-5.0) g/dL
[2017-04-11] MEDS: Piperacillin/Tazobactam 3.375 GM in D5% in Water (Mini-Bag+) 100 ML IVPB SCH (08:26)
[2017-04-11] MEDS: predniSONE 20 MG TABLET PO SCH (12:33)
[2017-04-11 18:57] LABS: ABG Base Excess -0.2 mEq/L (-2.0 to 3.0); ABG HCO3 23.9 mEQ/L (21-27); ABG Oxygen Saturation 94 % (95-98); ABG PCO2 36 mmHg (35-45); ABG PH 7.43 pH Units (7.32-7.45); ABG PO2 69 mmHg (85-104); Blood Gas FiO2 28 %
[2017-04-12] MEDS: *HR* Enoxaparin 40 MG/0.4 ML SYRINGE SQ SCH (06:41)
[2017-04-12] MEDS: Levofloxacin 750 MG/150 ML 750 MG/150 ML BAG IVPB SCH (06:41)
[2017-04-12 07:02] LABS: Basophils % 0.4 %; Eosinophils % 0.4 %; Hematocrit 30.7 % (37.5-50.1); Hemoglobin 9.8 g/dL (12.9-16.9); Immature Granulocytes % 1.5 % (0-4); Lymphocytes % 11.3 %; Mean Corpuscular HGB Conc 31.9 g/dL (31.6-35.5); Mean Corpuscular Hemoglobin 26.9 pg (28.0-33.3); Mean Corpuscular Volume 84.3 fL (83.0-100.0); Mean Platelet Volume 10.3 fL (9.4-12.4); Monocytes # 0.9 K/mcL (0.0-1.3); Monocytes % 10.4 %; Neutrophils # 6.5 K/mcL (1.6-8.9); Platelet Count 258 K/mcL (140-400); Red Blood Count 3.64 M/mcL (4.19-5.50); Red Cell Distribution Width 17.5 % (11.5-14.5)
[2017-04-12 07:14] LABS: Alanine Aminotransferase 18 Units/L (0-55); Albumin 2.4 g/dL (3.5-5.0); Albumin/Globulin Ratio 0.7 (1.1-2.2); Alkaline Phosphatase 69 Units/L (38-126); Aspartate Amino Transferase 16 Units/L (5-34); BUN/Creatinine Ratio 8 (6-26); Bilirubin,Total 0.3 mg/dL (0.2-1.2); Calcium 8.8 mg/dL (8.6-10.8); Carbon Dioxide 25 mEq/L (19-29); Chloride 106 mEq/L (98-109); Globulin 3.4 g/dL (2.4-3.5); Glucose 108 mg/dL (70-99); Osmolality,Calculated 286 (280-300); Potassium 3.5 mEq/L (3.5-4.5); Sodium 139 mEq/L (136-145); Total Protein 5.8 g/dL (6.0-8.3); eGFR For African Americans > 60 (> 60); eGFR For Non-African Americans > 60 (> 60)
[2017-04-12 07:18] LABS: Blood Urea Nitrogen 5 mg/dL (8-26)
[2017-04-12] MEDS: predniSONE 20 MG TABLET PO SCH (08:22)
[2017-04-12] MEDS: Sucralfate 1 GM TABLET PO SCH ×2 (08:22→11:51)
[2017-04-12] MEDS: Aspirin Enteric Coated 81 MG Tablet PO SCH (08:22)
[2017-04-12] MEDS: Lactobacillus 1 EACH CAP.SPRINK PO SCH (08:23)
[2017-04-12] MEDS: Budesonide/Formoterol 160/4.5 MDI IH SCH (09:20)
--- NOTE | 2017-04-12 10:00 | Internal Med Progress Note ---
<Yaron Qureshi - Last Filed: 04/12/17 13:18> Date of Encounter: 04/12/17 Time of Encounter: 09:58 - Assessment and plan (1) Sepsis Current Visit: Yes Status: Resolved Assessment and plan: Resolved. Plan: - Continue IV Levaquin - Blood cultures ordered and received by lab, no growth thus far. Qualifiers: Sepsis type: sepsis due to unspecified organism Qualified Code(s): A41.9 - Sepsis, unspecified organism (2) Pneumonia Current Visit: Yes Status: Acute Assessment and plan: Patient admitted with shortness of breath, hypoxia, tachycardia, chest CT demonstrates nutrient budding groundglass nodule opacities throughout the right lower lobe with patchy right basilar airspace consolidation which may represent superimposed acute infection/inflammation processes such as atypical pneumonia. Given the distribution of opacities and recent radiation therapy there could be a component of radiation pneumonitis - Given the recent hospitalization this of the hospital associated pneumonia 04/10/2017: Continues to show improvement, breath sounds improved compared to yesterday. Oxygen weaning down appropriately 04/11/2017: Patient continues to require increased oxygen demand but denies any fevers,chills, sweating. CTA of the chest today demonstrates new tree and bud pattern in the left upper and lower lobes. Need to consider other infectious causes such as possible fungal infection causing these symptoms. Consider pulmonology consult as patient may need bronchoscopy for further evaluation/ 04/12/2017: Patient's symptoms of fevers chills and sweating have been absent since admission. He still requires 2 L nasal cannula oxygen at rest. I discussed the case with pulmonology who will evaluate the patient and consider bronchoscopy. Plan: - Antibiotics as discussed above. - Optimize respiratory inhalers - No signs of end organ damage, blood pressure is stable - Bedside incentive spirometer - 6 minute home oxygen qualification Qualifiers: Pneumonia type: due to unspecified organism Laterality: right Lung location: lower lobe of lung Qualified Code(s): J18.1 - Lobar pneumonia, unspecified organism (3) Tachycardia Current Visit: Yes Status: Acute Assessment and plan: HR remains around 104. Tachycardia in the setting of right lower lobe tree and bud concerning for pneumonia and recent radiation therapy, patient is also receiving beta stimulating inhalers. Patient is asymptomatic. - CTA negative for pulmonary embolism Plan: - Continue treating underline right lower lung pneumonia - continue cardiac monitoring. (4) COPD (chronic obstructive pulmonary disease) Current Visit: Yes Status: Chronic Assessment and plan: Patient has known hx of COPD and is seen in the outpatient setting by Dr. Ramirez. Current COPD stable. Plan: - Continue Duonebs as scheduled - Restart home albuterol inhaler - Continue Symbicort home dose - Nicotine patch if patient desires. Qualifiers: COPD type: unspecified COPD Qualified Code(s): J44.9 - Chronic obstructive pulmonary disease, unspecified (5) Dyspnea Current Visit: No Status: Acute Assessment and plan: 66-year-old male with known right upper lung cancer presenting with shortness of breath and found to have tree-in-bud pattern and right lower lobe lung consistent with pneumonia. Patient had increased oxygen demand. Dry hacking cough no sputum production. -Continues no fevers, chills or sweating. - Oxygen requirements are improving, continue to wean as tolerated - Patient will require a 6 minute walk test prior to discharge to assess respiratory status and home oxygen requirements and follow up with pulmonology Qualifiers: Qualified Code(s): R06.00 - Dyspnea, unspecified (6) CAD (coronary artery disease) Current Visit: Yes Status: Chronic Assessment and plan: Known history of coronary artery disease, previous NSTEMI Plan: - Continue with atorvastatin, Plavix, aspirin, lisinopril Qualifiers: Coronary Disease-Associated Artery/Lesion type: [place] artery [place] vs. transplanted heart: [place] heart Associated angina: without angina Qualified Code(s): I25.10 - Atherosclerotic heart disease of [place] coronary artery without angina pectoris (7) Adenocarcinoma of lung Current Visit: Yes Status: Chronic Assessment and plan: Significant tobacco abuse history with COPD, coronary artery disease and current lung cancer. - Lung nodule measuring 2.6 x 1.6 cm in size consistent with known right upper lobe lung cancer seen on CT of the chest. Qualifiers: Laterality: right Qualified Code(s): C34.91 - Malignant neoplasm of unspecified part of right bronchus or lung (8) Tobacco abuse Current Visit: Yes Status: Acute Assessment and plan: Significant tobacco abuse history with COPD, coronary artery disease and current lung cancer. - Lung nodule measuring 2.6 x 1.6 cm in size consistent with known right upper lobe lung cancer seen on CT of the chest. - After smoking cessation discussion patient states that he has no intentions of quitting smoking. (9) Hyperlipemia Current Visit: No Status: Acute Assessment and plan: Known history of hyperlipidemia, patient is currently on Lipitor 80 mg by mouth at bedtime Qualifiers: Hyperlipidemia type: unspecified Qualified Code(s): E78.5 - Hyperlipidemia , unspecified (10) Hypokalemia Current Visit: Yes Status: Acute Assessment and plan: Potassium 3.6, improved compared to yesterday. Plan: - 40meq PO once. - Recheck K+ in am (11) DVT prophylaxis Current Visit: Yes Status: Acute Assessment and plan: Lovenox 40 mg subcutaneous daily - Subjective Interval history: Mr. Carbone 66-year-old male is seen and evaluated patient bedside this morning. He is alert awake interactive no acute distress.he denies any fevers, chills, night sweats or any other acute changes overnight. He feels that he is improving back to his normal state of health. After discussion regarding findings of his CTA he said he is open to a bronchoscopy but would like to discuss it further with pulmonology. - Constitutional Vitals: Temp Pulse Resp BP Pulse Ox 98.1 F 79 17 125/83 94 04/12/17 07:00 04/12/17 07:00 04/12/17 07:00 04/12/17 07:00 04/12/17 07:00 Exam: General: Patient alert, awake, oriented 3, interactive, in no acute distress HEENT: Normocephalic, atraumatic, pupils equal reactive to light, nasal cavity patent and open septum median position, oral mucosa moist, uvula midline, neck supple trachea midline no palpable lymphadenopathy, no thyromegaly. Chest: Symmetric bilateral correlating with respiratory effort, effort nonlabored. Cardiac: Regular rate and rhythm, positive S1, S2, no bruits appreciated bilateral carotids, Radial pulses 2+ bilateral, posterior tibial and dorsal pedal pulses 2+ bilateral. Respiratory: Clear to auscultation all lung al Abdomen: Soft, nontender, positive bowel sounds, no palpable masses appreciated on examination Extremities: Symmetric bilateral, no erythema or edema, patient moving all 4 extremities spontaneously. Neurologic: No focal deficits appreciated on examination. Face symmetric, muscle strength symmetric bilateral upper and lower extremities. Internal Medicine: Result - Labs CBC & Chem 7: 04/12/17 06:54 04/12/17 06:54 Labs: Short CBC 04/12/17 Range/Units 06:54 WBC 8.6 (4.3-11.1) K/mcL Hgb 9.8 L (12.9-16.9) g/dL Hct 30.7 L (37.5-50.1) % Plt Count 258 (140-400) K/mcL Neutrophils # 6.5 (1.6-8.9) K/mcL BMP 04/12/17 06:54 Sodium 139 Potassium 3.5 Chloride 106 Carbon Dioxide 25 BUN 5 L Creatinine 0.62 L Glucose 108 H Calcium 8.8 Liver Function 04/12/17 Range/Units 06:54 Total Bilirubin 0.3 (0.2-1.2) mg/dL AST 16 (5-34) Units/L ALT 18 (0-55) Units/L Alkaline Phosphatase 69 (38-126) Units/L Albumin 2.4 L (3.5-5.0) g/dL - ABG Interpretation ABG results: ABG ABG pH 7.43 pH Units (7.32-7.45) 04/11/17 18:48 ABG pCO2 36 mmHg (35-45) 04/11/17 18:48 ABG pO2 69 mmHg (85-104) L 04/11/17 18:48 ABG O2 Saturation 94 % (95-98) L 04/11/17 18:48 - Impressions Impressions Chest CTA 04/11/17 14:30 IMPRESSION: 1. No evidence of pulmonary embolic disease. 2. Stable right upper lobe central pulmonary nodule with mediastinal and right hilar adenopathy consistent with the patient's known malignancy. 3. Mild progression of tree-in-bud infiltrate within the right lower lobe, now also apparent within the left lower lobe and right upper lobe. The findings are worrisome for a superimposed pneumonia, possibly opportunistic. Some dependent atelectasis within the lower lobes is also apparent. D/ / 04/11/2017 15:33:56 Justin Ferguson MD / jaden Interpreting Provider: Justin Ferguson MD Consult Discharge Plan - Plan Instructions: Prednisone (By mouth), Levofloxacin (By mouth), Chronic Obstructive Pulmonary Disease (DC), Pneumonia (DC) Additional Instructions: pcp requested 1. Follow-up with your primary care provider in the next 3-5 days 2. Take all prescriptions as prescribed, any concerns or questions contact her primary care provider. 3. Return to the emergency department if: Return of fevers chills sweating, increasing shortness of breath, chest pain nausea vomiting diarrhea weakness or any other concerning medical symptoms or signs. - Follow-up with pulmonology as recommended. - Follow up with oncologist post hospital discharge Again highly recommend patient quit smoking. Referrals: Bushra Carrillo MD [Primary Care Provider] - Prescriptions: levoFLOXacin [Levaquin] 750 mg PO DAILY #3 tablet predniSONE [PredniSONE] 40 mg PO DAILY 3 Days <Walt Baldwin - Last Filed: 04/12/17 18:00> Date of Encounter: 04/12/17 - Constitutional Vitals: Temp Pulse Resp BP Pulse Ox 98.2 F 104 17 118/82 97 04/12/17 15:00 04/12/17 15:00 04/12/17 15:00 04/12/17 15:00 04/12/17 15:00 Internal Medicine: Result - Labs CBC & Chem 7: 04/12/17 06:54 04/12/17 06:54 Labs: Short CBC 04/12/17 Range/Units 06:54 WBC 8.6 (4.3-11.1) K/mcL Hgb 9.8 L (12.9-16.9) g/dL Hct 30.7 L (37.5-50.1) % Plt Count 258 (140-400) K/mcL Neutrophils # 6.5 (1.6-8.9) K/mcL BMP 04/12/17 06:54 Sodium 139 Potassium 3.5 Chloride 106 Carbon Dioxide 25 BUN 5 L Creatinine 0.62 L Glucose 108 H Calcium 8.8 Liver Function 04/12/17 Range/Units 06:54 Total Bilirubin 0.3 (0.2-1.2) mg/dL AST 16 (5-34) Units/L ALT 18 (0-55) Units/L Alkaline Phosphatase 69 (38-126) Units/L Albumin 2.4 L (3.5-5.0) g/dL - ABG Interpretation ABG results: ABG ABG pH 7.43 pH Units (7.32-7.45) 04/11/17 18:48 ABG pCO2 36 mmHg (35-45) 04/11/17 18:48 ABG pO2 69 mmHg (85-104) L 04/11/17 18:48 ABG O2 Saturation 94 % (95-98) L 04/11/17 18:48 - Impressions Impressions Chest CTA 04/11/17 14:30 IMPRESSION: 1. No evidence of pulmonary embolic disease. 2. Stable right upper lobe central pulmonary nodule with mediastinal and right hilar adenopathy consistent with the patient's known malignancy. 3. Mild progression of tree-in-bud infiltrate within the right lower lobe, now also apparent within the left lower lobe and right upper lobe. The findings are worrisome for a superimposed pneumonia, possibly opportunistic. Some dependent atelectasis within the lower lobes is also apparent. D/ / 04/11/2017 15:33:56 Justin Ferguson MD / jaden Interpreting Provider: Justin Ferguson MD - Attending Attestation I examined this patient and my medical decision-making was reviewed with the CITY LETTER CARRIER/PA/Advanced Practice Nurse/Resident Physician. I agree with the documented findings, disposition and treatment plan as described except to the extent set forth below.
[2017-04-12 15:52] VITALS: BP 118/82
--- NOTE | 2017-04-12 16:09 | Pulmonology Consult Note ---
Date of Encounter: 04/12/17 Time of Encounter: 11:20 Assessment and Plan (1) COPD (chronic obstructive pulmonary disease) Current Visit: Yes Status: Chronic COPD with possible mild exacerbation. This is likely contributing to the patient's dyspnea. Agree with current management and no recommendations for change at this point. Qualifiers: COPD type: unspecified COPD Qualified Code(s): J44.9 - Chronic obstructive pulmonary disease, unspecified (2) Pneumonia Current Visit: Yes Status: Acute Clinically improved following empiric antibiosis. Reviewed CT images and while there is some possible slight interval change in the right lower lobe findings, hesitate to describe his progression. Even with adequate antibiotic coverage, would not expect resolution of CT findings of such a short interval. Typically expect resolution take weeks to months, particularly in an older patient with COPD who is an active smoker. Given his clinical improvement, recommend against bronchoscopy at this point. The finding in question is distal and small enough that they are likely be low yield from BAL, and given that he is improved clinically findings from BAL would not likely alter management. Recommend repeat CT at approximately three-month interval to evaluate for change at that point. Qualifiers: Pneumonia type: due to unspecified organism Laterality: right Lung location: lower lobe of lung Qualified Code(s): J18.1 - Lobar pneumonia, unspecified organism (3) Dyspnea Current Visit: No Status: Acute Likely multifactorial. Likely contributors include COPD plus or minus acute exacerbation and possible radiation pneumonitis given recent history of XRT. Clinically improved from pneumonia, but could expect us to contribute to dyspnea as well. In the absence of any distinct parenchymal changes related to radiation pneumonitis, recommend against initiation of corticosteroids for that for that diagnosis but would recommend close pulmonary follow-up. Qualifiers: Qualified Code(s): R06.00 - Dyspnea, unspecified (4) Adenocarcinoma of lung Current Visit: Yes Status: Chronic Status post treatment with chemotherapy and XRT. Defer to oncology for further follow-up. Recommended tobacco cessation, patient declines Qualifiers: Laterality: right Qualified Code(s): C34.91 - Malignant neoplasm of unspecified part of right bronchus or lung History of Present Illness Consult date: 04/12/17 Reason for consult: pneumonia Chief complaint: Dyspnea History of present illness: Consulted by the internal medicine service for evaluation of a 66-year-old male with history of right upper lobe adenocarcinoma the lung status post chemotherapy rads. Patient was admitted several days ago for presumed healthcare associated pneumonia. Was treated with broad-spectrum antibiotics as shown clinical improvement. Today patient reports some continued dyspnea and nonproductive cough with occasional wheezing. States that he has improved subjectively since his admission. He notes that his dyspnea is worse with exertion but also states that he was informed by his radiation oncologist the expected have dyspnea on exertion for 2 year following his therapy. States the cough is largely nonproductive with only occasional quantities of scant sputum. Denies hemoptysis. Has previous history of esophageal ulcers presumably related to XRT but today denies dysphagia or odynophagia. Past Med Surg Social Fam HX - Past Medical History Medical history: cancer, COPD, hyperlipidemia, myocardial infarction Psychiatric history: no psych history - Past Surgical History Surgical History: other - Social History Smoking Status: Current every day smoker Packs per day: 1.5 Smokeless Tobacco Status: No Alcohol use: none Drug use: none - Family History Mother Living Status: Hx Family Cardiac Disorders: Yes (chf) Medications and Allergies Lisinopril [Zestril] 5 mg PO DAILY #30 tablet 10/09/15 [Rx] Multivitamin [One Daily Essential] 1 tab PO DAILY 11/29/16 [History] Omeprazole [PriLOSEC] 40 mg PO DAILY #30 cap 01/27/17 [Rx] Magic Mouthwash [Magic Mouthwash BLM] 10 ml PO QID PRN #240 ml 02/28/17 [Rx] Sucralfate [Carafate] 1 gm PO QIDAC #120 tablet 02/28/17 [Rx] Albuterol Sulfate [Proair Hfa] 2 puff IH Q4H PRN 04/09/17 [History] Aspirin [Lo-Dose Aspirin EC] 81 mg PO DAILY 04/09/17 [History] Atorvastatin [Lipitor] 80 mg PO HS 04/09/17 [History] Budesonide/Formoterol 160/4.5 [Symbicort 160/4.5] 2 puff IH BIDR 04/09/17 [ History] Carvedilol 3.125 mg PO BID 04/09/17 [History] Clopidogrel [Plavix] 75 mg PO DAILY 04/09/17 [History] Fluticasone Propionate Nasal [Flonase] 2 spray NS DAILY 04/09/17 [History] Ipratropium [place] 2 spray NS DAILY 04/09/17 [History] Zolpidem [Ambien] 10 mg PO HS PRN 04/09/17 [History] Allergies No Known Allergies Allergy (Verified 04/09/17 12:32) All Systems: A 10-system review of systems was performed and is negative for pertinent findings except as documented above in the HPI. - Constitutional Constitutional: no chills, no excessive sweating, no fever(s) - EENT Nose, mouth and throat: no change in voice, no dysphagia, no nasal discharge, no neck pain, no odynophagia, no sore throat - Cardiovascular Cardiovascular: no chest pain, no diaphoresis, no edema - Respiratory Respiratory: cough, dyspnea on exertion, wheezing, no pain on inspirtation, no excessive phlegm production - Gastrointestinal Gastrointestinal: no abdominal pain, no hematemesis - Genitourinary Genitourinary: no difficulty urinating - Musculoskeletal Musculoskeletal: no weakness, no abnormal gait, no joint swelling, no myalgias - Integumentary Integumentary: no jaundice - Neurological Neurological: no abnormal speech, no confusion, no dizziness, no focal weakness , no numbness - Psychiatric Psychiatric: no anxiety, no depression - Endocrine Endocrine: no fatigue, no flushing, no palpitations - Allergic/Immunologic Allergic/Immunologic: wheezing, no throat swelling Physical Examination Vital Signs: Vital Signs, Last 4 Hours Temp Pulse Resp BP Pulse Ox 04/12/17 15:00 98.2 F 104 17 118/82 97 General appearance: no acute distress Eyes: nonicteric Neck: supple Effort: normal Inspection: normal Auscultation: bilateral: clear Cardiovascular: regular rate and rhythm Gastrointestinal: soft, non-tender, non-distended Extremities: no cyanosis, no edema, no clubbing Musculoskeletal: no deformities normal mental status mood appropriate, affect normal Results - Laboratory Findings CBC and BMP: 04/12/17 06:54 04/12/17 06:54 ABG ABG pH 7.43 pH Units (7.32-7.45) 04/11/17 18:48 ABG pCO2 36 mmHg (35-45) 04/11/17 18:48 ABG pO2 69 mmHg (85-104) L 04/11/17 18:48 ABG O2 Saturation 94 % (95-98) L 04/11/17 18:48 Abnormal lab findings: Abnormal lab results RBC 3.64 M/mcL (4.19-5.50) L 04/12/17 06:54 Hgb 9.8 g/dL (12.9-16.9) L 04/12/17 06:54 Hct 30.7 % (37.5-50.1) L 04/12/17 06:54 MCH 26.9 pg (28.0-33.3) L 04/12/17 06:54 RDW 17.5 % (11.5-14.5) H 04/12/17 06:54 ABG pO2 69 mmHg (85-104) L 04/11/17 18:48 ABG O2 Saturation 94 % (95-98) L 04/11/17 18:48 BUN 5 mg/dL (8-26) L 04/12/17 06:54 Creatinine 0.62 mg/dL (0.72-1.25) L 04/12/17 06:54 Glucose 108 mg/dL (70-99) H 04/12/17 06:54 Serum Total Protein 5.8 g/dL (6.0-8.3) L 04/12/17 06:54 Albumin 2.4 g/dL (3.5-5.0) L 04/12/17 06:54 Albumin/Globulin Ratio 0.7 (1.1-2.2) L 04/12/17 06:54 Ur Specific [place] 1.027 (1.010-1.025) H 04/09/17 00:23 Urine Ketones 40 mg/dL (Negative) H 04/09/17 00:23 Urine Microscopic RBC 3-5 per hpf (0-3) H 04/09/17 00:23 - Clinical Findings Intake & Output: Intake & Output 04/12/17 04/12/17 04/12/17 07:59 15:59 23:59 Intake Total 0 / 0 840 / 840 Output Total 450 / 450 Balance -450 / -450 840 / 840 Weight 82 kg Consult Discharge Plan - Plan Instructions: Chronic Obstructive Pulmonary Disease (DC), Pneumonia (DC) Additional Instructions: pcp requested Referrals: Bushra Carrillo MD [Primary Care Provider] -
--- NOTE | 2017-04-12 16:28 | Discharge Summary ---
<Walt Baldwin P - Last Filed: 04/12/17 18:00> Date of Encounter: 04/12/17 - Discharge Medications Prescriptions: levoFLOXacin [Levaquin] 750 mg PO DAILY #3 tablet predniSONE [PredniSONE] 40 mg PO DAILY 3 Days Home Medications: Lisinopril [Zestril] 5 mg PO DAILY #30 tablet 10/09/15 [Rx] Multivitamin [One Daily Essential] 1 tab PO DAILY 11/29/16 [History] Omeprazole [PriLOSEC] 40 mg PO DAILY #30 cap 01/27/17 [Rx] Magic Mouthwash [Magic Mouthwash BLM] 10 ml PO QID PRN #240 ml 02/28/17 [Rx] Sucralfate [Carafate] 1 gm PO QIDAC #120 tablet 02/28/17 [Rx] Albuterol Sulfate [Proair Hfa] 2 puff IH Q4H PRN 04/09/17 [History] Aspirin [Lo-Dose Aspirin EC] 81 mg PO DAILY 04/09/17 [History] Atorvastatin [Lipitor] 80 mg PO HS 04/09/17 [History] Budesonide/Formoterol 160/4.5 [Symbicort 160/4.5] 2 puff IH BIDR 04/09/17 [ History] Carvedilol 3.125 mg PO BID 04/09/17 [History] Clopidogrel [Plavix] 75 mg PO DAILY 04/09/17 [History] Fluticasone Propionate Nasal [Flonase] 2 spray NS DAILY 04/09/17 [History] Ipratropium [place] 2 spray NS DAILY 04/09/17 [History] Zolpidem [Ambien] 10 mg PO HS PRN 04/09/17 [History] levoFLOXacin [Levaquin] 750 mg PO DAILY #3 tablet 04/12/17 [Rx] predniSONE [PredniSONE] 40 mg PO DAILY 3 Days 04/12/17 [Rx] Allergies/Adverse Reactions: Allergies No Known Allergies Allergy (Verified 04/09/17 12:32) Procedures/tests Complete & Pending: Procedures Performed prior 72 hours Category Date Time Status CTA chest [CT angio chest] [CT] Routine Cat Scan 04/11/17 14:30 Completed EV echocardiogram Routine Y 04/11/17 08:23 Completed Date of admission: 04/09/17 04:40 Primary care physician: Bushra Carrillo MD Consults: 04/12/17 08:54 Consult to Pulmonology [CONS] Routine Consulting Provider: [facility] Reason for Consult: advancment of his tree and bud findings on imaging. Call Completed: Yes - Patient Status Disposition: Home, Self-Care Condition: Good - Discharge Instructions Instructions: Prednisone (By mouth), Levofloxacin (By mouth), Chronic Obstructive Pulmonary Disease (DC), Pneumonia (DC) Follow Up With: Bushra Carrillo MD [Primary Care Provider] - Additional Instructions: pcp requested 1. Follow-up with your primary care provider in the next 3-5 days 2. Take all prescriptions as prescribed, any concerns or questions contact her primary care provider. 3. Return to the emergency department if: Return of fevers chills sweating, increasing shortness of breath, chest pain nausea vomiting diarrhea weakness or any other concerning medical symptoms or signs. - Follow-up with pulmonology as recommended. - Follow up with oncologist post hospital discharge Again highly recommend patient quit smoking. Hospital course: Mr. Carbone is a 66 year old male - Time Spent with Patient Total time spent providing and/or coordinating discharge services: - Constitutional Vitals: Temp Pulse Resp BP Pulse Ox 98.2 F 104 17 118/82 97 04/12/17 15:00 04/12/17 15:00 04/12/17 15:00 04/12/17 15:00 04/12/17 15:00 - Attending Attestation I examined this patient and my medical decision-making was reviewed with the DIRECTOR CHECK/PA/Advanced Practice Nurse/Resident Physician. I agree with the documented findings, disposition and treatment plan as described except to the extent set forth below. <Yaron Qureshi - Last Filed: 04/12/17 18:16> Date of Encounter: 04/12/17 Time of Encounter: 16:23 - Discharge Diagnosis (1) Sepsis Priority: Primary Status: Resolved Qualifiers: Sepsis type: sepsis due to unspecified organism Qualified Code(s): A41.9 - Sepsis, unspecified organism (2) Pneumonia Priority: Primary Status: Acute Qualifiers: Pneumonia type: due to unspecified organism Laterality: right Lung location: lower lobe of lung Qualified Code(s): J18.1 - Lobar pneumonia, unspecified organism (3) Tachycardia Priority: Primary Status: Acute (4) COPD (chronic obstructive pulmonary disease) Priority: Secondary Status: Chronic Qualifiers: COPD type: unspecified COPD Qualified Code(s): J44.9 - Chronic obstructive pulmonary disease, unspecified (5) Dyspnea Priority: Primary Status: Acute Qualifiers: Qualified Code(s): R06.00 - Dyspnea, unspecified (6) CAD (coronary artery disease) Priority: Secondary Status: Chronic Qualifiers: Coronary Disease-Associated Artery/Lesion type: mo[place] artery [place] vs. transplanted heart: mohegan heart Associated angina: without angina Qualified Code(s): I25.10 - Atherosclerotic heart disease of [place] coronary artery without angina pectoris (7) Adenocarcinoma of lung Priority: Secondary Status: Chronic Qualifiers: Laterality: right Qualified Code(s): C34.91 - Malignant neoplasm of unspecified part of right bronchus or lung (8) Tobacco abuse Priority: Secondary Status: Acute (9) Hyperlipemia Priority: Secondary Status: Acute Qualifiers: Hyperlipidemia type: unspecified Qualified Code(s): E78.5 - Hyperlipidemia , unspecified (10) Hypokalemia Priority: Secondary Status: Acute (11) DVT prophylaxis Priority: Secondary Status: Acute Procedures/tests Complete & Pending: Procedures Performed prior 72 hours Category Date Time Status CTA chest [CT angio chest] [CT] Routine Cat Scan 04/11/17 14:30 Completed EV echocardiogram Routine Y 04/11/17 08:23 Completed Date of admission: 04/09/17 04:40 Primary care physician: Bushra Carrillo MD Consults: 04/12/17 08:54 Consult to Pulmonology [CONS] Routine Consulting Provider: [facility] [place] Reason for Consult: advancment of his tree and bud findings on imaging. Call Completed: Yes Discharging clinician: Yaron Qureshi Anticipated date of discharge: 04/12/17 - Patient Status Functional capacity at discharge: independent ambulation Overall status at discharge: patient is progressing back to baseline - Diet and Activity Activity: increase activity as tolerated Diet: advance to your usual diet Interval History: Mr. Carbone is a 66 year old male with h/o stage III adenocarcinoma of the lung s/p chemotherapy and radiation therapy last treatments in February, COPD, chronic respiratory failure on home oxygen intermittently; coronary artery disease s/ p stent placement, admitted through the emergency department with acute on chronic respiratory failure and right lower lobe pneumonia on 04/09/2017. He was started on levofloxacin, vancomycin and Zosyn for HCAP. He is admitted to the hospitalist service for further management. He required 4 L nasal cannula oxygen at the time of admission. He received a CT scan of the chest which demonstrated the right lower lobe tree-in-bud pattern. It also demonstrated his known right upper lobe lung nodule measured at 2.6 cm. After starting antibiotic treatment his respiratory status gradually improved but continued to require nasal cannula oxygen at a minimum of 2 L continuously throughout his inpatient stay. He had resolution of his fevers chills and sweating and fatigue. He remained tachycardic throughout his inpatient stay with a heart rate of roughly 104. The patient stated that he has had tachycardia since starting chemotherapy radiation therapy. In echocardiogram performed on 2016 demonstrated left ventricular ejection fraction 50% hypokinesis of the basal mid inferior wall and normal right ventricular size and function with no significant valvular dysfunction or evidence of pulmonary hypertension. He had a CT performed that had no evidence of pulmonary embolism but did demonstrate a stable right upper lobe central pulmonary nodule with mediastinal and right hilar adenopathy consistent with patient's known malignancy. Mild progression of tree-in-bud infiltrate within the right lower lobe now also apparently left lower lobe and right upper lobe. Pulmonology was consulted and evaluated the patient and deemed it was not necessary at this time to perform bronchoscopy. The patient remained stable for the remainder of his inpatient stay. He seen and evaluated on 04/12/2017 any demonstrated a stable condition for discharge with close follow-up. Smoking cessation was discussed with the patient who mentioned that he is not interested in quitting smoking will continue to smoke. This was discussed several times and he continues to reject smoking cessation. Patient also stated that if he ever was sick again he would not seek treatment at Hospital as he does not wish to be in the hospital. It was emphasized that if he is securely recommended that he seeks treatment for which he said he would not do. - He was provided a prescription for the remainder of his Levaquin treatment - He was provided a prescription for continuous home oxygen at 2 L as he failed a 6 minute walk testing continued to require nasal cannula oxygen - He was highly recommended to follow-up with pulmonology post discharge for which his and he said he was going to schedule his follow-up appointment - He was highly recommended to update his oncologist with his recent admission and further discussion regarding his treatment. Hospital course: Mr. Carbone is a 66 year old male - Time Spent with Patient Total time spent providing and/or coordinating discharge services: - Constitutional Vitals: Temp Pulse Resp BP Pulse Ox 98.2 F 104 17 118/82 97 04/12/17 15:00 04/12/17 15:00 04/12/17 15:00 04/12/17 15:00 04/12/17 15:00 Exam: General: Patient alert, awake, oriented 3, interactive, in no acute distress HEENT: Normocephalic, atraumatic, pupils equal reactive to light, nasal cavity patent and open septum median position, oral mucosa moist, uvula midline, neck supple trachea midline no palpable lymphadenopathy, no thyromegaly. Chest: Symmetric bilateral correlating with respiratory effort, effort nonlabored. Cardiac: Regular rate and rhythm, positive S1, S2, no bruits appreciated bilateral carotids, Radial pulses 2+ bilateral, posterior tibial and dorsal pedal pulses 2+ bilateral. Respiratory: Clear to auscultation all lung al Abdomen: Soft, nontender, positive bowel sounds, no palpable masses appreciated on examination Extremities: Symmetric bilateral, no erythema or edema, patient moving all 4 extremities spontaneously. Neurologic: No focal deficits appreciated on examination. Face symmetric, muscle strength symmetric bilateral upper and lower extremities.
== END 2017-04-12 18:23 | disposition home or self-care (01) | DRG 871 ==
LOC: EMEROO 23:31 → 2NENU 23:31 → SUATTDRO 04-09 04:40 → 2NENU 04-10 14:40
PROVIDERS: ADMIT Internal Medicine; ATTEND Internal Medicine